=== PATIENT | male | born 1960 | race Caucasian/White ===

== ENCOUNTER 2020-06-23 11:27 | Outpatient (REF) | payer OTHER, SELFPAY ==
[2020-06-23 13:15] LABS: Alanine Aminotransferase 20 U/L (0-40); Albumin Level 4.1 g/dL (3.5-5.0); Alkaline Phosphatase 100 U/L (39-117); Anion Gap 14 (12-20); Aspartate Amino Transferase 16 U/L (5-37); Bilirubin Direct 0.6 mg/dL (0.0-0.5); Bilirubin Total 1.4 mg/dL (0.0-1.0); Blood Urea Nitrogen 7 mg/dL (9-16); Calcium 8.6 mg/dL (8.4-10.2); Carbon Dioxide 27 mmol/L (22-29); Chloride 104 mmol/L (96-108); Cholesterol 125 mg/dL; Estimated Glomerular Filt Rate > 60; Glucose Random 151 mg/dL (60-115); HDL Cholesterol 34 mg/dL; LDL Cholesterol Calculated 63 mg/dl; Potassium 4.3 mmol/L (3.3-5.1); Sodium 141 mmol/L (135-145); Total Protein 6.6 g/dL (6.5-8.0); Triglycerides 140 mg/dL
[2020-06-23 13:19] LABS: Mean Corpuscular HGB Conc 33.2 g/dl (31.0-36.0); Mean Corpuscular Hemoglobin 28.7 pg (27.0-33.0); Mean Corpuscular Volume 86.4 fL (80-98); Mean Platelet Volume 12.5 fL (9.4-12.4); Platelet Count 140 X10*3/uL (160-400); Red Blood Count 6.63 X10*6/uL (4.60-5.80); White Blood Count 6.8 X10*3/uL (4.8-10.8)
[2020-06-23 13:24] LABS: Estimated Average Glucose 237 mg/dL; Hematocrit 57.3 % (42-52); Hemoglobin A1c % 9.9 %
== END 2020-06-23 11:28 | disposition home or self-care (01) ==
LOC: HO.LAB 11:27
PROVIDERS: PCP Internal Medicine; Visit Provider Internal Medicine
DX: E11.9 Type 2 diabetes mellitus without complications (principal)
CPT/HCPCS: 36415; 80048; 80061; 80076; 83036; 85027

== ENCOUNTER 2021-01-28 10:29 | Outpatient (REF) | payer OTHER, SELFPAY ==
[2021-01-28 11:06] LABS: Hemoglobin 18.9 g/dl (14.0-18.0); Mean Corpuscular HGB Conc 33.2 g/dl (31.0-36.0); Mean Corpuscular Hemoglobin 28.1 pg (27.0-33.0); Mean Corpuscular Volume 84.7 fL (80.0-98.0); Platelet Count 153 X10*3/uL (160-400); Red Blood Count 6.73 X10*6/uL (4.60-5.80); Red Cell Distribution Width 15.1 % (11.0-16.0); White Blood Count 7.3 X10*3/uL (4.8-10.8)
[2021-01-28 11:30] LABS: Estimated Average Glucose 151 mg/dL; Hemoglobin A1c % 6.9 %
[2021-01-28 11:32] LABS: Alanine Aminotransferase 19 U/L (0-40); Albumin Level 4.2 g/dL (3.5-5.0); Alkaline Phosphatase 102 U/L (39-117); Anion Gap 12 (12-20); Aspartate Amino Transferase 18 U/L (5-37); Bilirubin Direct 0.5 mg/dL (0.0-0.5); Bilirubin Total 1.4 mg/dL (0.0-1.0); Blood Urea Nitrogen 11 mg/dL (9-16); Calcium 9.2 mg/dL (8.4-10.2); Carbon Dioxide 25 mmol/L (22-29); Chloride 106 mmol/L (96-108); Cholesterol 116 mg/dL; Estimated Glomerular Filt Rate > 60; Glucose Random 194 mg/dL (60-115); HDL Cholesterol 37 mg/dL; LDL Cholesterol Calculated 56 mg/dl; Potassium 4.3 mmol/L (3.3-5.1); Sodium 139 mmol/L (135-145); Total Protein 6.8 g/dL (6.5-8.0); Triglycerides 116 mg/dL
[2021-01-28 11:35] LABS: Creatinine Urine 149.26 mg/dL; Microalbum/Creatinine Ratio Ur 42.8 ug/mg cr
== END 2021-01-28 10:30 | disposition home or self-care (01) ==
LOC: HO.LAB 10:29
PROVIDERS: PCP Internal Medicine; Visit Provider Internal Medicine
DX: E11.9 Type 2 diabetes mellitus without complications (principal)
CPT/HCPCS: 36415; 80048; 80061; 80076; 82043; 83036; 84443; 85027

== ENCOUNTER 2021-03-30 13:29 | Outpatient (REF) | payer OTHER, SELFPAY ==
--- NOTE | ~2021-03-30 | XR_ITS ---
EXAMINATION: XR CHEST CLINICAL INFORMATION: Acute bronchitis, unspecified. COMPARISON: Chest done on 01/14/2016. TECHNIQUE: 2 views of the chest were obtained. FINDINGS: Interval development of subtle prominent bronchovascular markings are present bilaterally throughout the entire lung field, may represent viral pneumonia versus interstitial pneumonia versus reactive airway disease. No evidence of any superimposed dense airspace consolidation. The cardiac mediastinal silhouette is within normal limit. No evidence of any pleural effusion or pneumothorax. The visualized upper abdomen is unremarkable. Mild degenerative multilevel spondylosis. XR/XR chest 2V IMPRESSION: Interval development of diffuse bilateral subtle prominent bronchovascular markings are noted, may represent reactive airway disease versus viral pneumonia/interstitial pneumonia, new since 01/14/2016.
== END 2021-03-30 13:30 | disposition home or self-care (01) ==
LOC: HO.XRAY 13:29
PROVIDERS: PCP Internal Medicine; Visit Provider Internal Medicine
DX: J20.9 Acute bronchitis, unspecified (principal); I82.409 Acute embolism and thrombosis of unspecified deep veins of unspecified lower extremity; E11.9 Type 2 diabetes mellitus without complications
CPT/HCPCS: 71046

== ENCOUNTER 2021-08-03 13:42 | Outpatient (REF) | payer OTHER, SELFPAY ==
[2021-08-03 14:30] LABS: COVID-19 Test Positive (Negative); IDNOW Serial# 08D9AD1C
== END 2021-08-03 13:43 | disposition home or self-care (01) ==
LOC: HO.LAB 13:42
PROVIDERS: PCP Internal Medicine; Visit Provider Internal Medicine
DX: Z20.822 Contact with and (suspected) exposure to COVID-19 (principal)
CPT/HCPCS: 87635; C9803

== ENCOUNTER 2021-11-02 08:31 | Outpatient (REF) | payer OTHER, SELFPAY ==
[2021-11-02 11:19] LABS: MANUAL DIFF FLAG NO
[2021-11-02 11:29] LABS: Basophils Percent Auto 0.3 % (0-2); Eosinophils Absolute Auto 0.2 X10*3/uL (0.0-0.4); Eosinophils Percent Auto 2.2 % (0-4); Hemoglobin 18.6 g/dl (14.0-18.0); Imm Gran Abs Auto 0.04 X10*3/uL (0.00-0.03); Imm Gran Pct Auto 0.6 % (0.0-0.4); Lymphocytes Absolute Auto 1.7 X10*3/uL (1.2-4.9); Lymphocytes Percent Auto 24.9 % (20-40); Mean Corpuscular HGB Conc 32.7 g/dl (31.0-36.0); Mean Corpuscular Hemoglobin 28.1 pg (27.0-33.0); Mean Corpuscular Volume 85.9 fL (80.0-98.0); Mean Platelet Volume 12.8 fL (9.4-12.4); Monocytes Absolute Auto 0.6 X10*3/uL (0.1-1.2); Monocytes Percent Auto 9.1 % (2-11); Neutrophils Absolute Auto 4.3 x10*3/uL (2.0-8.3); Neutrophils Percent Auto 62.9 % (45-73); Platelet Count 138 X10*3/uL (160-400); Red Blood Count 6.61 X10*6/uL (4.60-5.80); Red Cell Distribution Width 15.5 % (11.0-16.0); White Blood Count 6.8 X10*3/uL (4.8-10.8)
[2021-11-02 11:31] LABS: Hematocrit 56.8 % (42.0-52.0)
[2021-11-02 11:43] LABS: Estimated Average Glucose 160 mg/dL; Hemoglobin A1c % 7.2 %
[2021-11-02 11:53] LABS: Alanine Aminotransferase 19 U/L (0-40); Albumin Level 4.1 g/dL (3.5-5.0); Alkaline Phosphatase 93 U/L (39-117); Anion Gap 13 (12-20); Aspartate Amino Transferase 16 U/L (5-37); Bilirubin Total 1.2 mg/dL (0.0-1.0); Blood Urea Nitrogen 11 mg/dL (9-16); Calcium 8.9 mg/dL (8.4-10.2); Carbon Dioxide 26 mmol/L (22-29); Chloride 106 mmol/L (96-108); Cholesterol 108 mg/dL; Estimated Glomerular Filt Rate > 60; Glucose Fasting 70 mg/dL (60-99); HDL Cholesterol 40 mg/dL; LDL Cholesterol Calculated 52 mg/dl; Sodium 141 mmol/L (135-145); Total Protein 6.7 g/dL (6.5-8.0); Triglycerides 81 mg/dL
[2021-11-02 12:01] LABS: TSH reflex Free T4 1.32 uIU/mL (0.32-4.0)
[2021-11-02 12:01] LABS: Appearance Urine CLEAR; Color Urine YELLOW; Glucose Urine UA NEG (NEG); Leukocyte Esterase Urine NEG (NEG); Nitrite Urine NEG (NEG); Specific Gravity - Urine >= 1.030 (1.005-1.025); Urine Blood NEG (NEG); Urine Ketones NEG (NEG); Urine Protein NEG (NEG-TRACE)
== END 2021-11-02 08:32 | disposition home or self-care (01) ==
LOC: HO.HMGCLDS 08:31
PROVIDERS: PCP Nurse Practitioner Family; Visit Provider Nurse Practitioner Family
DX: E11.9 Type 2 diabetes mellitus without complications (principal)
CPT/HCPCS: 36415; 80053; 80061; 81003; 83036; 84443; 85025; 87086

== ENCOUNTER 2023-01-31 12:45 | Outpatient (AMB) | payer OTHER, SELFPAY ==
--- NOTE | 2023-01-31 13:00 | A.OFFPC_ITS ---
Vital Signs 01/31/23 13:07 01/31/23 13:52 Weight 270 lb BP 150/80 H 138/70 Blood Pressure Location Rt brachial Rt brachial Position Sitting Sitting Pulse 72 Pulse Source Pulse Oximeter Pulse Oximetry (%) 97 Oxygen Delivery Method Room Air Intake Visit Reasons: Annual PE Intake Note: Needs new sugar supplies and machines. [facility]. Allergies metformin Allergy (Severe, Verified 01/31/23 13:26) Itching Medication List - Last Reconciled 01/31/23 by Martin Adams, [facility]- albuterol sulfate 1.25 mg (1.5 mL) inhalation Q6H 90 days albuterol sulfate 90 mcg/actuation 1 inh inhalation QID PRN 90 days apixaban (Eliquis) 5 mg PO BID 90 days blood sugar diagnostic test blood sugar three times a day blood sugar diagnostic (FreeStyle Lite Strips) bid gabapentin 800 mg PO Q8H 90 days insulin glargine (Lantus Solostar U-100 Insulin) 75 units (0.75 mL) subcut DAILY 90 days lisinopril 20 mg PO DAILY 3 months pen needle, diabetic (BD Ultra-Fine Lesli Pen Needle) As directed pioglitazone 15 mg PO DAILY simvastatin 20 mg PO BEDTIME 3 months triamcinolone acetonide 0.1% 1 appl topical BID Tobacco use date assessed: 01/31/23 HPI Annual PE HPI Details Pt is here for a PE. Will order labs. Refuses any type of colon screen. Due for PSA, will order. Denies dribbling with urination, weak stream, and frequent nocturia. Pt is a diabetic, on an GREGORY and a statin. A1C in office today is 6.6. Due for microalbumin, will order. Denies polyuria, polydipsia, does report neuropathy. Pt denies any signs and symptoms of hypoglycemia and does know how to correct it. Pt has been a PPD smoker since age 17. Will refer to thoracic for low-dose CT. Pt has been in [place] for the last year and has not seen anyone for diabetes in over a year. Pt has induration and scattered bulging throughout his entire abdomen. He reports this is from poor weight-lifting in the past. Pt has had this checked out in the past and nothing was found. [facility] Medical History (Updated 11/08/23 @ 13:36 by ROMAN Salamanca) HTN (hypertension) Cataract Lumbar spondylitis Smoker COPD (chronic obstructive pulmonary disease) Erythrocytosis Deep vein thrombosis Blood clotting disorder Diabetes Surgical History History of surgery on arm Family History Mother No problems noted. Father No problems noted. Social History Housing: Apartment Alcohol intake: former Patient Tobacco Use Status: Current everyday Tobacco user Tobacco use type: Cigarette Cigarette Packs Per Day: 1.5 e-Cigarette/Vaping Use: Never Used Second Hand Smoke Exposure: No service: No Current occupational status: retired Cognitive needs: Yes (cane) Hearing needs: No Vision needs: No Questionnaire PHQ-9 Over the last 2 weeks, how often have you been bothered by any of the following problems? 1. Little interest or pleasure in doing things: several days 2. Feeling down, depressed, or hopeless: not at all 3. Trouble falling or staying asleep, or sleeping too much: more than half the days 4. Feeling tired or having little energy: several days 5. Poor appetite or overeating: several days 6. Feeling bad about yourself - or that you are a failure or have let yourself or your family down: not at all 7. Trouble concentrating on things, such as reading the newspaper or watching television: not at all 8. Moving or speaking so slowly that other people could have noticed. Or the opposite - being so fidgety or restless that you have been moving around a lot more than usual: not at all 9. Thoughts that you would be better off or of hurting yourself in some way: not at all Total score: 5 Depression Screening Interpretation: Negative Depression Screening Done: Yes 78252 - PHQ-9 Billing: Yes Source: Developed by Drs. Jorge Roper, Ct Hopkins, Jeremy Velasquez and colleagues, with an educational magui from [employer]. Thrive Questionnaire Date Thrive assessed: 01/31/23 I am a: Patient What is your living situation today?: I have a steady place to live Within the past 12 months, did the food you bought not last and you didn't have the money to get more?: Never true Within the past 12 months, did you worry whether your food would run out before you got money to buy more?: Never true Do you have trouble paying for medicines?: Yes Do you have trouble getting transportation to medical appointments?: No Do you have trouble paying your heating and electricity bill?: Yes Do you have trouble taking care of your child, family member or friend?: No Do you have trouble with day-to-day activities such as bathing, preparing meals, shopping, managing finances, etc.?: No Are you currently unemployed and looking for a job?: No Are you interested in more education?: No AUDIT C Alcohol Use Questionnaire (AUDIT-C) 1. How often do you have a drink containing alcohol?: Never 3. How often do you have six or more drinks on one occasion?: Never Total Score: 0 Score Reviewed/Action Taken: No MATTEO-7 AMB Questionnaire MATTEO-7 Date MATTEO - 7 assessed: 01/31/23 Feeling nervous, anxious, or on edge: 1 = Several days Not being able to stop or control worryin = Not at all Worrying too much about different things: 0 = Not at all Trouble relaxin = Several days Being so restless that it is hard to sit still: 1 = Several days Becoming easily annoyed or irritable: 2 = More than half the days Feeling afraid as if something awful might happen: 0 = Not at all Total MATTEO-7 score (0-4 normal; 5-9 mild; 10-14 moderate; 15-21 severe): 5 Source: Developed by Drs. Jorge Roper, Ct Hopkins, Jeremy Velasquez and colleagues, with an educational magui from [employer]. MATTEO-7 Assessment Billing MATTEO-7 Assessment Tool: MATTEO-7 Assessment 19601 Review of Systems Const Denies chills and Denies fever(s) Eyes Denies blurry vision ENT Denies vertigo, Denies dizziness and Denies sore throat Card Denies chest pain at rest, Denies chest pain with activity, Denies diaphoresis, Denies dyspnea and Denies dyspnea on exertion Resp Denies cough, Denies dyspnea, Denies dyspnea on exertion and Denies wheezing GI Denies abdominal pain, Denies melena, Denies hematochezia, Denies constipation, Denies diarrhea and Denies loose stools Denies hematuria Musc Denies numbness and Denies tingling Skin/Breast Denies lesions Neuro Denies vertigo, Denies dizziness, Denies numbness and Denies tingling Psych Denies anxiety, Denies depression, Denies homicidal ideation, Denies suicidal ideation and Denies other (substance abuse) Aller/Immun Denies wheezing Physical exam (Primary Care) Vital Signs: Last Vital Signs Pulse 72 01/31/23 13:07 BP 138/70 01/31/23 13:52 Pulse Ox 97 01/31/23 13:07 Oxygen Delivery Method Room Air 01/31/23 13:07 Tobacco/Smoking Status: Tobacco use Status Tobacco use date assessed 01/31/23 01/31/23 13:15 Patient Tobacco Use Status Current everyday Tobacco 01/31/23 13:01 Tobacco use type Cigarette 01/31/23 13:01 e-Cigarette/Vaping Use Never Used 01/31/23 13:01 PHQ-9: PHQ-9 Score PHQ-9: Total score 5 01/31/23 13:59 Depression Screening Interpretation: Negative Thrive Assessment: Date of Thrive Assessment Date Thrive assessed 01/31/23 01/31/23 13:59 Const Other: using cane General: cooperative Nutritional Appearance: obese morbidly obese Orientation/consciousness: patient oriented x3 HENMT Head: Yes normal to inspection, Yes normocephalic and Yes atraumatic Ears: TM's normal bilaterally Eyes General: appearance normal, both eyes and all related structures Alignment and Position: alignment normal and position normal Neck Neck: Yes normal visual inspection and Yes no lymphadenopathy Thyroid: Thyroid normal Resp Effort & Inspection: normal respiratory effort Auscultation: clear to auscultation bilaterally Cardio Rate: regular rate Rhythm: regular rhythm Heart sounds: S1 normal heart sound present, S2 normal heart sound present and no murmurs GI Other: indurated abdomen with scattered bulging Palpation (GI): nontender Auscultation: normal bowel sounds Male General Exam: Yes normal external exam Penis: normal penis Scrotum: scrotum normal, testes descended bilaterally and no inguinal hernias Testes: no testicular mass Skin Rashes: no rashes Neuro General: patient oriented x3, moves all extremities, no focal motor deficits and deep tendon reflexes 2+ bilaterally Romberg Test: Negative Extrem Other: bilat feet: + sensation with use of monofilament, elongated toenails bilat, significant callous formation to heel of left foot Psych Appearance: grossly normal Mental Status: mental status grossly normal Speech and movement: Normal speech and movement present Affect: normal affect Attitude: cooperative Thought process: Normal thought process present Thought content: Normal thought content present Insight: Good insight present (Psych) Judgement: Good judgement present (Psych) Results AMB Hemoglobin A1c AMB Hemoglobin A1c 6.6 % Last Edit by VICTOR HUGO Becker on 01/31/23 13 :41 Results Reviewed Results Reviewed: Laboratory Last Values Hgb A1c (Clinic) 6.6 % (4.0-6.0) H 01/31/23 13:40 Assessment and Plan Assessment & Plan (1) Diabetes: Code(s): E11.9 - Type 2 diabetes mellitus without complications Qualifiers: Diabetes mellitus complication status: without complication Diabetes mellitus intermediate insulin use: without intermediate use Diabetes mellitus type: type 2 Qualified Code(s): E11.9 - Type 2 diabetes mellitus without complications Plan: Labs ordered (2) Screening PSA (prostate specific antigen): Code(s): Z12.5 - Encounter for screening for malignant neoplasm of prostate Plan: PSA ordered (3) Smoker: Code(s): F17.200 - Nicotine dependence, unspecified, uncomplicated Plan: Referred to thoracic Plan The patient agreed to the use of a front office medical assistant for this encounter. Scribed for ROMAN Ramos by eleno Castañeda scribe, on 01/31/2023 at 13:25 EST. Orders: Orders Microalbumin, Random (w Creat) Today E11.9 - Type 2 diabetes mellitus without complications, Z00.00 - Encounter for general adult medical examination without abnormal findings Complete Blood Count Auto Diff Today E11.9 - Type 2 diabetes mellitus without complications, Z00.00 - Encounter for general adult medical examination without abnormal findings Comprehensive [place]. Panel Fast Today E11.9 - Type 2 diabetes mellitus without complications, Z00.00 - Encounter for general adult medical examination without abnormal findings TSH reflex Free T4 Today E11.9 - Type 2 diabetes mellitus without complications, Z00.00 - Encounter for general adult medical examination without abnormal findings UA CC w/rflx Micro + Cult Today E11.9 - Type 2 diabetes mellitus without complications, Z00.00 - Encounter for general adult medical examination without abnormal findings Lipid Panel Today E11.9 - Type 2 diabetes mellitus without complications, Z00.00 - Encounter for general adult medical examination without abnormal findings Prostate Specific Antigen Scr Today Z12.5 - Encounter for screening for malignant neoplasm of prostate AMB Hemoglobin A1c Today Z13.9 - Encounter for screening, unspecified Referrals Thoracic Surgery Referral F17.200 - Nicotine dependence, unspecified, uncomplicated Podiatry Referral E11.9 - Type 2 diabetes mellitus without complications Medications: Changed From blood sugar diagnostic (FreeStyle Lite Strips) bid 100 ea 4RF E11.9 - Type 2 diabetes mellitus without complications To blood sugar diagnostic (FreeStyle Lite Strips) tid 100 ea 4RF E11.9 - Type 2 diabetes mellitus without complications From insulin glargine (Lantus Solostar U-100 Insulin) 75 units (0.75 mL) subcut DAILY 90 days 67.5 mL 4RF E11.9 - Type 2 diabetes mellitus without complications To insulin glargine (Lantus Solostar U-100 Insulin) 65 units (0.65 mL) subcut DAILY 90 days 58.5 mL 4RF E11.9 - Type 2 diabetes mellitus without complications Refilled insulin glargine (Lantus Solostar U-100 Insulin) 65 units (0.65 mL) subcut DAILY 90 days 58.5 mL 4RF E11.9 - Type 2 diabetes mellitus without complications blood sugar diagnostic test blood sugar three times a day 100 ea 1RF insulin glargine (Lantus Solostar U-100 Insulin) 65 units (0.65 mL) subcut DAILY 90 days 58.5 mL 4RF E11.9 - Type 2 diabetes mellitus without complications Coding Level of Care Code Est Pt Prev Care 40-64y(76449) Diagnoses Type 2 diabetes mellitus without complication, without long-term current use of insulin E11.9 Diabetes mellitus complication status: without complication Diabetes mellitus intermediate insulin use: without intermediate use Diabetes mellitus type: type 2 Screening PSA (prostate specific antigen) Z12.5 Smoker F17.200 Additional Codes MATTEO-7 Assessment Billing - MATTEO-7 Assessment Tool: MATTEO-7 Assessment [id number] ([id number])
[2023-01-31 13:07] VITALS: BP 150/80; PULSE 72; O2SAT 97
[2023-01-31 13:52] VITALS: BP 138/70
== END 2023-01-31 14:21 | disposition home or self-care (01) ==
PROVIDERS: PCP Nurse Practitioner Family; Visit Provider Nurse Practitioner Family
DX: Z00.00 Encounter for general adult medical examination without abnormal findings (principal); E11.9 Type 2 diabetes mellitus without complications; Z12.5 Encounter for screening for malignant neoplasm of prostate; F17.210 Nicotine dependence, cigarettes, uncomplicated
CPT/HCPCS: 83036; 99396

== ENCOUNTER 2023-04-19 09:36 | Outpatient (REF) | payer OTHER, SELFPAY ==
[2023-04-19 11:38] LABS: MANUAL DIFF FLAG NO
[2023-04-19 11:56] LABS: Appearance Urine Clear; Color Urine Yellow; Glucose Urine UA Negative (Negative); Leukocyte Esterase Urine Negative (Negative); Nitrite Urine Negative (Negative); PH 5.5 (5.0-9.0); Specific Gravity - Urine >= 1.030 (1.005-1.025); Urine Blood Negative (Negative); Urine Ketones Negative (Negative); Urine Protein Negative (Neg-Trace)
[2023-04-19 12:09] LABS: Basophils Percent Auto 0.3 % (0-2); Eosinophils Absolute Auto 0.2 X10*3/uL (0.0-0.4); Eosinophils Percent Auto 2.6 % (0-4); Hemoglobin 18.9 g/dl (14.0-18.0); Imm Gran Abs Auto 0.03 X10*3/uL (0.00-0.03); Imm Gran Pct Auto 0.5 % (0.0-0.4); Lymphocytes Absolute Auto 1.4 X10*3/uL (1.2-4.9); Lymphocytes Percent Auto 24.7 % (20-40); Mean Corpuscular HGB Conc 32.9 g/dl (31.0-36.0); Mean Corpuscular Hemoglobin 29.1 pg (27.0-33.0); Mean Corpuscular Volume 88.3 fL (80.0-98.0); Mean Platelet Volume 12.7 fL (9.4-12.4); Monocytes Absolute Auto 0.6 X10*3/uL (0.1-1.2); Monocytes Percent Auto 10.6 % (2-11); Neutrophils Absolute Auto 3.5 x10*3/uL (2.0-8.3); Neutrophils Percent Auto 61.3 % (45-73); Platelet Count 131 X10*3/uL (160-400); White Blood Count 5.8 X10*3/uL (4.8-10.8)
[2023-04-19 12:18] LABS: Creatinine Urine 150.46 mg/dL; Microalbum/Creatinine Ratio Ur 11.9 ug/mg cr (<30)
[2023-04-19 12:20] LABS: Hematocrit 57.4 % (42.0-52.0)
[2023-04-19 12:35] LABS: Alanine Aminotransferase 18 U/L (0-40); Albumin Level 4.1 g/dL (3.5-5.0); Alkaline Phosphatase 92 U/L (39-117); Anion Gap 13 (12-20); Aspartate Amino Transferase 21 U/L (5-37); Blood Urea Nitrogen 10 mg/dL (9-16); Calcium 9.2 mg/dL (8.4-10.2); Carbon Dioxide 26 mmol/L (22-29); Chloride 107 mmol/L (96-108); Cholesterol 96 mg/dL (<200); Estimated Glomerular Filt Rate > 60; Glucose Fasting 92 mg/dL (60-99); HDL Cholesterol 32 mg/dL (>40); LDL Cholesterol Calculated 35 mg/dL (<100); Potassium 4.1 mmol/L (3.3-5.1); Sodium 142 mmol/L (135-145); Triglycerides 147 mg/dL (<150)
[2023-04-19 12:40] LABS: TSH reflex Free T4 1.21 uIU/mL (0.32-4.0)
[2023-04-19 12:44] LABS: Prostate Specific Antigen Scr 0.69 ng/mL (<0.05-4.0)
== END 2023-04-19 09:37 | disposition home or self-care (01) ==
LOC: HO.HMGCLDS 09:36
PROVIDERS: PCP Nurse Practitioner Family; Visit Provider Nurse Practitioner Family
DX: Z00.00 Encounter for general adult medical examination without abnormal findings (principal); Z12.5 Encounter for screening for malignant neoplasm of prostate; E11.9 Type 2 diabetes mellitus without complications
CPT/HCPCS: 36415; 80053; 80061; 81003; 82043; 82570; 84153; 84443; 85025

== ENCOUNTER → 2023-05-10 11:20 | Outpatient (BNV) | payer OTHER, SELFPAY | PROVIDERS: PCP Nurse Practitioner Family; Visit Provider Internal Medicine | DX: D69.6 Thrombocytopenia, unspecified (principal) | CPT/HCPCS: 99203 ==

== ENCOUNTER 2023-05-16 12:51 | Outpatient (AMB) | payer OTHER, SELFPAY ==
--- NOTE | 2023-05-16 12:52 | MHC.PC.OV ---
Vital Signs 05/16/23 12:53 Height 5 ft 10 in Weight 270 lb BMI 38.7 BP 160/82 H Blood Pressure Location Lt brachial Position Sitting Pulse 76 Pulse Source Pulse Oximeter Pulse Oximetry (%) 97 Oxygen Delivery Method Room Air Intake Visit Reasons: 3 month fu Intake Note: pt is here for 3 month follow up Plywood Patcher Required: No Allergies metformin Allergy (Severe, Verified 05/16/23 17:57) Itching Medication List - Last Reconciled 05/16/23 by ROMAN Salamanca albuterol sulfate 1.25 mg (1.5 mL) inhalation Q6H 90 days albuterol sulfate 90 mcg/actuation 1 inh inhalation QID PRN 90 days apixaban (Eliquis) 5 mg PO BID 90 days blood sugar diagnostic (FreeStyle Lite Strips) tid blood sugar diagnostic test blood sugar three times a day flash glucose scanning reader (FreeStyle Maria Del Rosario 2 [place]) As directed flash glucose sensor (FreeStyle Maria Del Rosario 2 Sensor kit) Test blood sugar 4 times per day gabapentin 800 mg PO Q8H 90 days insulin glargine (Lantus Solostar U-100 Insulin) 75 units subcut DAILY lancets (FreeStyle Lancets) As directed lisinopril 20 mg PO DAILY 3 months pen needle, diabetic (BD Ultra-Fine Lesli Pen Needle) As directed pioglitazone 15 mg PO DAILY simvastatin 20 mg PO BEDTIME 3 months Tobacco use date assessed: 05/16/23 Dental Screening Dental Screen Date: 05/16/23 Did you have a dental visit in the last 12 months?: No Did you have a dental problem in the last 6 months where you did not have access to dental care?: No Was dental information given to patient?: Patient declined HPI 3 month fu HPI Details Pt is a diabetic, on an GREGORY and a statin. A1C in office today is . Microalbumin is up to date. Denies polyuria, polydipsia, does report neuropathy. Pt denies any signs and symptoms of hypoglycemia and does know how to correct it. Eye exam is up to date. Pt was referred to podiatry but has not received a call back about an appointment. Pt will call them again to schedule this. [facility] Medical History (Updated 05/16/23 @ 18:04 by ROMAN Salamanca) HTN (hypertension) Cataract Lumbar spondylitis Smoker COPD (chronic obstructive pulmonary disease) Erythrocytosis Deep vein thrombosis Blood clotting disorder Diabetes Surgical History History of surgery on arm Family History Mother No problems noted. Father No problems noted. Social History Housing: Apartment Alcohol intake: former Patient Tobacco Use Status: Current everyday Tobacco user Tobacco use type: Cigarette Cigarette Packs Per Day: 1.5 e-Cigarette/Vaping Use: Never Used Second Hand Smoke Exposure: No service: No Current occupational status: retired Cognitive needs: Yes (cane) Hearing needs: No Vision needs: No Questionnaire PHQ-9 Over the last 2 weeks, how often have you been bothered by any of the following problems? 1. Little interest or pleasure in doing things: not at all 2. Feeling down, depressed, or hopeless: not at all 3. Trouble falling or staying asleep, or sleeping too much: not at all 4. Feeling tired or having little energy: not at all 5. Poor appetite or overeating: not at all 6. Feeling bad about yourself - or that you are a failure or have let yourself or your family down: not at all 7. Trouble concentrating on things, such as reading the newspaper or watching television: not at all 8. Moving or speaking so slowly that other people could have noticed. Or the opposite - being so fidgety or restless that you have been moving around a lot more than usual: not at all 9. Thoughts that you would be better off or of hurting yourself in some way: not at all Total score: 0 Depression Screening Interpretation: Negative Depression Screening Done: Yes 49142 - PHQ-9 Billing: Yes Source: Developed by Drs. Jorge Roper, Ct Hopkins, Jeremy Velasquez and colleagues, with an educational magui from [employer]. Thrive Questionnaire Date Thrive assessed: 05/16/23 I am a: Patient What is your living situation today?: I have a steady place to live Within the past 12 months, did the food you bought not last and you didn't have the money to get more?: Never true Within the past 12 months, did you worry whether your food would run out before you got money to buy more?: Never true Do you have trouble paying for medicines?: No Do you have trouble getting transportation to medical appointments?: No Do you have trouble paying your heating and electricity bill?: No Do you have trouble taking care of your child, family member or friend?: No Do you have trouble with day-to-day activities such as bathing, preparing meals, shopping, managing finances, etc.?: No Are you currently unemployed and looking for a job?: No Are you interested in more education?: No Please select the resources that you would like help with: None Currently or been in a relationship where the following occur: no concerns reported THRIVE Score: 0 AUDIT C Alcohol Use Questionnaire (AUDIT-C) 1. How often do you have a drink containing alcohol?: Never 3. How often do you have six or more drinks on one occasion?: Never Total Score: 0 Score Reviewed/Action Taken: No MATTEO-7 AMB Questionnaire MATTEO-7 Date MATTEO - 7 assessed: 05/16/23 Feeling nervous, anxious, or on edge: 0 = Not at all Not being able to stop or control worryin = Not at all Worrying too much about different things: 0 = Not at all Trouble relaxin = Not at all Being so restless that it is hard to sit still: 0 = Not at all Becoming easily annoyed or irritable: 0 = Not at all Feeling afraid as if something awful might happen: 0 = Not at all Total MATTEO-7 score (0-4 normal; 5-9 mild; 10-14 moderate; 15-21 severe): 0 Source: Developed by Drs. Jorge Roper, Ct Hopkins, Jeremy Velasquez and colleagues, with an educational magui from [employer]. MATTEO-7 Assessment Billing MATTEO-7 Assessment Tool: MATTEO-7 Assessment 33034 Review of Systems Const Reports as per HPI Physical exam (Primary Care) Vital Signs: Last Vital Signs Pulse 76 05/16/23 12:53 BP 160/82 H 05/16/23 12:53 Pulse Ox 97 05/16/23 12:53 Oxygen Delivery Method Room Air 05/16/23 12:53 BMI result Body Mass Index 38.7 Tobacco/Smoking Status: Tobacco use Status Tobacco use date assessed 05/16/23 05/16/23 12:59 Patient Tobacco Use Status Current everyday Tobacco 05/16/23 12:53 Tobacco use type Cigarette 05/16/23 12:53 e-Cigarette/Vaping Use Never Used 05/16/23 12:53 PHQ-9: PHQ-9 Score PHQ-9: Total score 0 05/16/23 18:00 Depression Screening Interpretation: Negative Thrive Assessment: Date of Thrive Assessment Date Thrive assessed 05/16/23 05/16/23 13:01 Currently or been in a relationship where the following occur: no concerns reported Const General: cooperative Nutritional Appearance: obese Orientation/consciousness: patient oriented x3 Resp Effort & Inspection: normal respiratory effort Auscultation: clear to auscultation bilaterally Cardio Rate: regular rate Rhythm: regular rhythm Heart sounds: S1 normal heart sound present and S2 normal heart sound present Neuro General: patient oriented x3 Extrem Other: bilat feet: + sensation with use of monofilament, feet intact, elongated toenails Psych Appearance: grossly normal Mental Status: mental status grossly normal Speech and movement: Normal speech and movement present Affect: normal affect Attitude: cooperative Thought process: Normal thought process present Thought content: Normal thought content present Insight: Good insight present (Psych) Judgement: Good judgement present (Psych) Results AMB Hemoglobin A1c AMB Hemoglobin A1c 6.6 % Last Edit by Mich Salazar CMA on 05/16/23 13:18 Results Reviewed Results Reviewed: Laboratory Last Values Hgb A1c (Clinic) 6.6 % (4.0-6.0) H 05/16/23 13:08 Assessment and Plan Assessment & Plan (1) Diabetes: Code(s): E11.9 - Type 2 diabetes mellitus without complications Qualifiers: Diabetes mellitus complication status: without complication Diabetes mellitus watermelon inspector insulin use: without watermelon inspector use Diabetes mellitus type: type 2 Qualified Code(s): E11.9 - Type 2 diabetes mellitus without complications (2) HTN (hypertension): Code(s): I10 - Essential (primary) hypertension Plan: adding amlodipine, will have pt track his BP at home Plan The patient agreed to the use of a medical assisting instructor for this encounter. Scribed for JAGDEEP Ramos-BC by Genevieve Morel medical assisting instructor, on 05/16/2023 at 13:10 EST. Orders: Orders TSH reflex Free T4 Today E11.9 - Type 2 diabetes mellitus without complications Lipid Panel Today E11.9 - Type 2 diabetes mellitus without complications AMB Hemoglobin A1c Today Z13.9 - Encounter for screening, unspecified Complete Blood Count Auto Diff Today E11.9 - Type 2 diabetes mellitus without complications Comprehensive [place]. Panel Fast Today E11.9 - Type 2 diabetes mellitus without complications UA CC w/rflx Micro + Cult Today E11.9 - Type 2 diabetes mellitus without complications Medications: New lancets (FreeStyle Lancets) As directed 100 ea 0RF amlodipine 2.5 mg PO DAILY 90 tabs 0RF Refilled blood sugar diagnostic (FreeStyle Lite Strips) tid 100 ea 4RF E11.9 - Type 2 diabetes mellitus without complications blood sugar diagnostic test blood sugar three times a day 100 ea 1RF Coding Level of Care Code Est Pt Level 3 (25821) Diagnoses Type 2 diabetes mellitus without complication, without long-term current use of insulin E11.9 Diabetes mellitus complication status: without complication Diabetes mellitus senior living insulin use: without senior living use Diabetes mellitus type: type 2 HTN (hypertension) I10 Additional Codes MATTEO-7 Assessment Billing - MATTEO-7 Assessment Tool: MATTEO-7 Assessment [id number] ([id number])
[2023-05-16 12:53] VITALS: BP 160/82; PULSE 76; O2SAT 97; BMI 38.7
== END 2023-05-16 15:47 | disposition home or self-care (01) ==
PROVIDERS: PCP Nurse Practitioner Family; Visit Provider Nurse Practitioner Family
DX: E11.9 Type 2 diabetes mellitus without complications (principal); I10 Essential (primary) hypertension
CPT/HCPCS: 83036; 99213

== ENCOUNTER 2023-08-14 09:57 | Outpatient (REF) | payer OTHER, SELFPAY ==
[2023-08-14 13:07] LABS: MANUAL DIFF FLAG NO
[2023-08-14 13:25] LABS: Appearance Urine Clear; Color Urine Yellow; Glucose Urine UA Negative (Negative); Leukocyte Esterase Urine Negative (Negative); Nitrite Urine Negative (Negative); PH 6.5 (5.0-9.0); Urine Blood Negative (Negative); Urine Ketones Negative (Negative); Urine Protein Negative (Neg-Trace)
[2023-08-14 13:30] LABS: Basophils Percent Auto 0.6 % (0-2); Eosinophils Absolute Auto 0.2 X10*3/uL (0.0-0.4); Eosinophils Percent Auto 2.7 % (0-4); Hemoglobin 19.2 g/dl (14.0-18.0); Imm Gran Abs Auto 0.04 X10*3/uL (0.00-0.03); Imm Gran Pct Auto 0.6 % (0.0-0.4); Lymphocytes Absolute Auto 1.7 X10*3/uL (1.2-4.9); Lymphocytes Percent Auto 23.9 % (20-40); Mean Corpuscular HGB Conc 32.6 g/dl (31.0-36.0); Mean Corpuscular Hemoglobin 29.1 pg (27.0-33.0); Mean Corpuscular Volume 89.4 fL (80.0-98.0); Mean Platelet Volume 12.8 fL (9.4-12.4); Monocytes Absolute Auto 0.7 X10*3/uL (0.1-1.2); Monocytes Percent Auto 10.1 % (2-11); Neutrophils Absolute Auto 4.4 x10*3/uL (2.0-8.3); Neutrophils Percent Auto 62.1 % (45-73); Platelet Count 143 X10*3/uL (160-400); Red Blood Count 6.59 X10*6/uL (4.60-5.80); Red Cell Distribution Width 16.2 % (11.0-16.0); White Blood Count 7.1 X10*3/uL (4.8-10.8)
[2023-08-14 13:32] LABS: Hematocrit 58.9 % (42.0-52.0)
[2023-08-14 14:05] LABS: Alanine Aminotransferase 23 U/L (0-40); Albumin Level 4.1 g/dL (3.5-5.0); Alkaline Phosphatase 94 U/L (39-117); Anion Gap 15 (12-20); Aspartate Amino Transferase 21 U/L (5-37); Bilirubin Total 1.3 mg/dL (0.0-1.0); Blood Urea Nitrogen 11 mg/dL (9-16); Calcium 9.3 mg/dL (8.4-10.2); Carbon Dioxide 26 mmol/L (22-29); Chloride 106 mmol/L (96-108); Cholesterol 112 mg/dL (<200); Estimated Glomerular Filt Rate > 60; Glucose Fasting 64 mg/dL (60-99); HDL Cholesterol 45 mg/dL (>40); LDL Cholesterol Calculated 52 mg/dL (<100); Potassium 4.2 mmol/L (3.3-5.1); Sodium 143 mmol/L (135-145); Total Protein 7.2 g/dL (6.5-8.0); Triglycerides 79 mg/dL (<150)
[2023-08-14 14:07] LABS: TSH reflex Free T4 1.13 uIU/mL (0.32-4.0)
== END 2023-08-14 09:58 | disposition home or self-care (01) ==
LOC: HO.HMGCLDS 09:57
PROVIDERS: PCP Nurse Practitioner Family; Visit Provider Nurse Practitioner Family
DX: E11.9 Type 2 diabetes mellitus without complications (principal)
CPT/HCPCS: 36415; 80053; 80061; 81003; 84443; 85025

== ENCOUNTER 2023-08-22 13:59 | Outpatient (AMB) | payer OTHER, SELFPAY ==
[2023-08-22 14:04] VITALS: BP 150/78; PULSE 80; O2SAT 98; BMI 39.7
--- NOTE | 2023-08-22 14:04 | MHC.PC.OV ---
Vital Signs 08/22/23 14:04 Height 5 ft 10 in Weight 276 lb 8 oz BMI 39.7 BP 150/78 H Blood Pressure Location Rt brachial Position Sitting Pulse 80 Pulse Source Pulse Oximeter Pulse Oximetry (%) 98 Oxygen Delivery Method Room Air Intake Visit Reasons: 3 month follow up Commissioner Of Internal Revenue: Not Required per policy Accompanied by: Self / Same As Patient Allergies metformin Allergy (Severe, Verified 08/22/23 14:05) Itching Medication List - Last Reconciled 08/22/23 by ROMAN Salamanca albuterol sulfate 1.25 mg (1.5 mL) inhalation Q6H 90 days albuterol sulfate 90 mcg/actuation 1 inh inhalation QID PRN 90 days amlodipine 2.5 mg PO DAILY apixaban (Eliquis) 5 mg PO BID 90 days blood sugar diagnostic (FreeStyle Lite Strips) tid blood sugar diagnostic test blood sugar three times a day flash glucose scanning reader (FreeStyle Maria Del Rosario 2 [place]) As directed flash glucose sensor (FreeStyle Maria Del Rosario 2 Sensor kit) Test blood sugar 4 times per day gabapentin 800 mg PO Q8H 90 days insulin glargine (Lantus Solostar U-100 Insulin) 75 units subcut DAILY lancets (FreeStyle Lancets) As directed lisinopril 20 mg PO DAILY pen needle, diabetic (BD Ultra-Fine Lesli Pen Needle) daily use pioglitazone 15 mg PO DAILY simvastatin 20 mg PO BEDTIME Tobacco use date assessed: 05/16/23 Dental Screening Dental Screen Date: 05/16/23 HPI 3 month follow up HPI Details Pt is a diabetic, on an GREGORY and a statin. A1C in office today is 6.7. Microalbumin is up to date. Denies polyuria, polydipsia, does report neuropathy. Pt denies any signs and symptoms of hypoglycemia and does know how to correct it. Eye exam is up to date according to pt. Pt is following up with hematology and podiatry. Refuses pneumonia vaccine. Refuses any type of colon screen. HTN: Blood pressure is elevated today. Will increase lisinopril from 20mg to 30mg. Denies chest pain, shortness of breath, headache, dizziness, and blurred vision. [facility] Medical History HTN (hypertension) Cataract Lumbar spondylitis Smoker COPD (chronic obstructive pulmonary disease) Erythrocytosis Deep vein thrombosis Blood clotting disorder Diabetes Surgical History History of surgery on arm Family History Mother No problems noted. Father No problems noted. Social History Housing: Apartment Alcohol intake: former Patient Tobacco Use Status: Current everyday Tobacco user Tobacco use type: Cigarette Cigarette Packs Per Day: 1.5 e-Cigarette/Vaping Use: Never Used Second Hand Smoke Exposure: No service: No Current occupational status: retired Cognitive needs: Yes (cane) Hearing needs: No Vision needs: No Questionnaire Thrive Questionnaire Date Thrive assessed: 05/16/23 MATTEO-7 AMB Questionnaire MATTEO-7 Date MATTEO - 7 assessed: 05/16/23 Source: Developed by Drs. Jorge Roper, Ct Hopkins, Jeremy Velasquez and colleagues, with an educational magui from [employer]. Review of Systems Const Reports as per HPI Physical exam (Primary Care) Vital Signs: Last Vital Signs Pulse 80 08/22/23 14:04 BP 150/78 H 08/22/23 14:04 Pulse Ox 98 08/22/23 14:04 Oxygen Delivery Method Room Air 08/22/23 14:04 BMI result Body Mass Index 39.7 Tobacco/Smoking Status: Tobacco use Status Tobacco use date assessed 05/16/23 08/22/23 14:06 Patient Tobacco Use Status Current everyday Tobacco 08/22/23 14:06 Tobacco use type Cigarette 08/22/23 14:06 e-Cigarette/Vaping Use Never Used 08/22/23 14:06 Thrive Assessment: Date of Thrive Assessment Date Thrive assessed 05/16/23 08/22/23 14:06 Const General: cooperative Nutritional Appearance: obese Orientation/consciousness: patient oriented x3 Resp Effort & Inspection: normal respiratory effort Auscultation: diminished lung sounds (though moving air) Cardio Rate: regular rate Rhythm: regular rhythm Heart sounds: S1 normal heart sound present and S2 normal heart sound present Neuro General: patient oriented x3 Extrem Other: bilat feet: + sensation with use of monofilament, feet intact, no right calf tenderness or warmth Right lower extremity: edema Details: pitting and 1+ Left lower extremity: edema (trace) Psych Appearance: grossly normal Mental Status: mental status grossly normal Speech and movement: Normal speech and movement present Affect: normal affect Attitude: cooperative Thought process: Normal thought process present Thought content: Normal thought content present Insight: Good insight present (Psych) Judgement: Good judgement present (Psych) Results AMB Hemoglobin A1c AMB Hemoglobin A1c 6.7 % Last Edit by FEDERICO Alexander on 08/22/23 14:21 Results Reviewed Results Reviewed: Laboratory Last Values Hgb A1c (Clinic) 6.7 % (4.0-6.0) H 08/22/23 14:21 Assessment and Plan Assessment & Plan (1) Diabetes: Code(s): E11.9 - Type 2 diabetes mellitus without complications Qualifiers: Diabetes mellitus complication status: without complication Diabetes mellitus marine oil terminal superintendent insulin use: without marine oil terminal superintendent use Diabetes mellitus type: type 2 Qualified Code(s): E11.9 - Type 2 diabetes mellitus without complications Plan: A1C done in office, cont same regime Plan The patient agreed to the use of a associate medical director for this encounter. Scribed for ROMAN Ramos by Genevieve Morel associate medical director, on 08/22/2023 at 14:25 EST. Orders: Orders AMB Hemoglobin A1c Today E11.9 - Type 2 diabetes mellitus without complications Medications: Changed From pen needle, diabetic (BD Ultra-Fine Lesli Pen Needle) As directed 100 ea 0RF E11.9 - Type 2 diabetes mellitus without complications To pen needle, diabetic (BD Ultra-Fine Lesli Pen Needle) daily use 100 ea 3RF E11.9 - Type 2 diabetes mellitus without complications From lisinopril 20 mg PO DAILY 90 tabs 1RF To lisinopril please take this new dose 30 mg PO DAILY 90 tabs 1RF Refilled gabapentin 800 mg PO Q8H 90 days 270 tabs 0RF lisinopril 20 mg PO DAILY 90 tabs 1RF apixaban (Eliquis) 5 mg PO BID 90 days 180 tabs 1RF 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
== END 2023-08-22 14:40 | disposition home or self-care (01) ==
PROVIDERS: PCP Nurse Practitioner Family; Visit Provider Nurse Practitioner Family
DX: E11.9 Type 2 diabetes mellitus without complications (principal)
CPT/HCPCS: 83036; 99213

== ENCOUNTER 2023-10-19 11:05 | Outpatient (AMB) | payer OTHER, SELFPAY ==
[2023-10-19 11:26] VITALS: BP 132/84; PULSE 71; TEMP 36.9; O2SAT 98; BMI 41.0
--- NOTE | 2023-10-19 11:26 | AM.OFFWIN_ITS ---
Intake Vital Signs 10/19/23 11:26 Height 5 ft 10 in Weight 286 lb BMI 41.0 BP 132/84 Blood Pressure Location Lt brachial Position Sitting Pulse 71 Pulse Source Pulse Oximeter Temp 98.5 F Temp Source Oral Pulse Oximetry (%) 98 Oxygen Delivery Method Room Air Intake Visit Reasons: bilat leg swelling and weeping-Diabetic Intake Note: pt here c/o bilateral leg swelling with discharge. Cut left leg a few months ago. Wound,not healing Patient Tobacco Use Status: Current everyday Tobacco user Allergies metformin Allergy (Severe, Verified 10/19/23 11:27) Itching Do you need a note to return to daycare/school/sports/work: No HPI bilat leg swelling and weeping-Diabetic HPI Details This note is constructed using voice recognition software. While every effort has been made to ensure accuracy, hammer runner errors may have been included. The patient is a 63 year old male with history of diabetes who presents to the clinic today with bilateral leg swelling and weeping. He notes that he had several year history of leg edema and is treated on diuretics. The swelling is not worse but when he also has a wound to his left anterior lower leg he was concerned that this could be an infection. He reports that he started with a blister, which he accidentally touched and it popped leaking clear fluid. He has had no pain, fever, chills, or known redness to the area. The area still leaks. He is washing this with peroxide and then applying Neosporin and a Band-Aid. [facility] Medical History HTN (hypertension) Cataract Lumbar spondylitis Smoker COPD (chronic obstructive pulmonary disease) Erythrocytosis Deep vein thrombosis Blood clotting disorder Diabetes Surgical History History of surgery on arm Family History Mother No problems noted. Father No problems noted. Social History Housing: Apartment Alcohol intake: former Patient Tobacco Use Status: Current everyday Tobacco user Tobacco use type: Cigarette Cigarette Packs Per Day: 1.5 e-Cigarette/Vaping Use: Never Used Second Hand Smoke Exposure: No service: No Current occupational status: retired Cognitive needs: Yes (cane) Hearing needs: No Vision needs: No Review of Systems Const All systems reviewed & are unremarkable except as noted in HPI and below Physical Exam Vital Signs: Last Vital Signs Temp 98.5 F 10/19/23 11:26 Pulse 71 10/19/23 11:26 BP 132/84 10/19/23 11:26 Pulse Ox 98 10/19/23 11:26 Oxygen Delivery Method Room Air 10/19/23 11:26 BMI result Body Mass Index 41.0 Const General: cooperative, healthy appearing, comfortable, no acute distress and alert Orientation/consciousness: patient oriented x3 Limitations: no limitations Resp Effort & Inspection: normal respiratory effort and able to speak in complete sentences Auscultation: clear to auscultation bilaterally Cardio Jugular venous distension: no JVD Palpation: normal PMI Rate: regular rate Heart sounds: S1 normal heart sound present, S2 normal heart sound present, no click, no gallops, no murmurs and no rubs Skin Other: Left lower anterior extremity with open wound with serosanguineous drainage, surrounding erythema, and warmth. Neuro General: patient oriented x3 Extrem Other: Negative Homans General: Yes full ROM, Yes capillary refill normal, Yes normal exam except as noted and Yes edema (+1 bilateral lower extremity.) Psych Appearance: grossly normal Mental Status: mental status grossly normal Speech and movement: Normal speech and movement present Affect: normal affect Assessment & Plan Assessment & Plan (1) Cellulitis: Code(s): L03.90 - Cellulitis, unspecified Qualifiers: Site of cellulitis: extremity Site of cellulitis of extremity: lower e xtremity Laterality: left Qualified Code(s): L03.116 - Cellulitis of left lower limb Plan: Antimicrobial therapy initiated for patient. Advised patient to keep area clean and dry. Advised patient to avoid Neosporin as this has been proven not to be effective for wound resolution. Advised patient to monitor for worsening symptoms such as streaking. (2) Leg edema: Code(s): R60.0 - Localized edema Plan: Chronic in nature, patient remains on diuretic therapy. No concern for new feature given physical examination. This is also consistent with previous examination by PCP. Advised patient to elevate legs, continue diuretics, and follow up with worsening. Plan See above for full details and plan. Medications: New cephalexin 500 mg PO QID 7 days 28 caps 0RF Coding Level of Care Code Est Pt Level 4 (99309) Diagnoses Cellulitis of left lower extremity L03.116 Site of cellulitis: extremity Site of cellulitis of extremity: lower extremity Laterality: left Leg edema R60.0 Time Spent (min) 30
== END 2023-10-19 14:32 | disposition home or self-care (01) ==
PROVIDERS: PCP Nurse Practitioner Family; Visit Provider Registered Nurse
DX: L03.116 Cellulitis of left lower limb (principal); R60.0 Localized edema
CPT/HCPCS: 99214

== ENCOUNTER 2023-11-12 13:56 | Outpatient (AMB) | payer OTHER, SELFPAY ==
--- NOTE | 2023-11-12 13:58 | MHC.PC.OV ---
Vital Signs 11/12/23 13:59 11/12/23 14:40 Height 5 ft 10 in Weight 282 lb BMI 40.5 BP 150/80 H 138/78 Blood Pressure Location Rt brachial Lt brachial Position Sitting Sitting Pulse 90 Pulse Source Pulse Oximeter Pulse Oximetry (%) 94 Oxygen Delivery Method Room Air Intake Visit Reasons: f/u Intake Note: pt is here for follow up, DM Department Clerk Required: No Allergies metformin Allergy (Severe, Verified 11/12/23 13:59) Itching Tobacco use date assessed: 05/16/23 Dental Screening Dental Screen Date: 05/16/23 HPI f/u HPI Details Pt is a diabetic, on an GREGORY and a statin. A1C in office today is 6.4. Microalbumin is up to date. Denies polyuria, polydipsia, does report neuropathy. Pt denies any signs and symptoms of hypoglycemia and does know how to correct it. Pt c/o cough. He reports that this is mostly dry but is intermittently productive. Will stop lisinopril and start losartan-hydrochlorothiazide 50-12.5mg (pt has lymphedema of his BLE). He reported compression socks he has difficulty using. Usually edema goes down with BLE elevation. denies any fevers, chills, CP, SOB. [facility] Medical History HTN (hypertension) Cataract Lumbar spondylitis Smoker COPD (chronic obstructive pulmonary disease) Erythrocytosis Deep vein thrombosis Blood clotting disorder Diabetes Surgical History History of surgery on arm Family History Mother No problems noted. Father No problems noted. Social History Housing: Apartment Alcohol intake: former Patient Tobacco Use Status: Current everyday Tobacco user Tobacco use type: Cigarette Cigarette Packs Per Day: 1.5 e-Cigarette/Vaping Use: Never Used Second Hand Smoke Exposure: No service: No Current occupational status: retired Cognitive needs: Yes (cane) Hearing needs: No Vision needs: No Questionnaire PHQ-9 Over the last 2 weeks, how often have you been bothered by any of the following problems? 1. Little interest or pleasure in doing things: not at all 2. Feeling down, depressed, or hopeless: not at all 3. Trouble falling or staying asleep, or sleeping too much: not at all 4. Feeling tired or having little energy: not at all 5. Poor appetite or overeating: not at all 6. Feeling bad about yourself - or that you are a failure or have let yourself or your family down: not at all 7. Trouble concentrating on things, such as reading the newspaper or watching television: not at all 8. Moving or speaking so slowly that other people could have noticed. Or the opposite - being so fidgety or restless that you have been moving around a lot more than usual: not at all 9. Thoughts that you would be better off or of hurting yourself in some way: not at all Total score: 0 Depression Screening Interpretation: Negative Depression Screening Done: Yes 43521 - PHQ-9 Billing: Yes Source: Developed by Drs. Jorge Roepr, Ct [place], Jeremy Velasquez and colleagues, with an educational magui from [employer] Thrive Questionnaire Date Thrive assessed: 11/12/23 I am a: Patient What is your living situation today?: I have a steady place to live Within the past 12 months, did the food you bought not last and you didn't have the money to get more?: Never true Within the past 12 months, did you worry whether your food would run out before you got money to buy more?: Never true Do you have trouble paying for medicines?: No Do you have trouble getting transportation to medical appointments?: No Do you have trouble paying your heating and electricity bill?: No Do you have trouble taking care of your child, family member or friend?: No Do you have trouble with day-to-day activities such as bathing, preparing meals, shopping, managing finances, etc.?: No Are you currently unemployed and looking for a job?: No Are you interested in more education?: No Please select the resources that you would like help with: None Currently or been in a relationship where the following occur: I choose not to answer THRIVE Score: 0 AUDIT C Alcohol Use Questionnaire (AUDIT-C) 1. How often do you have a drink containing alcohol?: Never 3. How often do you have six or more drinks on one occasion?: Never Total Score: 0 Score Reviewed/Action Taken: Yes MATTEO-7 AMB Questionnaire MATTEO-7 Date MATTEO - 7 assessed: 11/12/23 Feeling nervous, anxious, or on edge: 0 = Not at all Not being able to stop or control worryin = Not at all Worrying too much about different things: 0 = Not at all Trouble relaxin = Not at all Being so restless that it is hard to sit still: 1 = Several days Becoming easily annoyed or irritable: 1 = Several days Feeling afraid as if something awful might happen: 0 = Not at all Total MATTEO-7 score (0-4 normal; 5-9 mild; 10-14 moderate; 15-21 severe): 2 Source: Developed by Drs. Jorge Roper, Ct [place], Jeremy Velasquez and colleagues, with an educational magui from [employer] MATTEO-7 Assessment Billing MATTEO-7 Assessment Tool: MATTEO-7 Assessment 30596 Review of Systems Const Reports as per HPI Physical exam (Primary Care) Vital Signs: Last Vital Signs Pulse 90 11/12/23 13:59 BP 138/78 11/12/23 14:40 Pulse Ox 94 11/12/23 13:59 Oxygen Delivery Method Room Air 11/12/23 13:59 BMI result Body Mass Index 40.5 Tobacco/Smoking Status: Tobacco use Status Tobacco use date assessed 05/16/23 11/12/23 13:58 Patient Tobacco Use Status Current everyday Tobacco 11/12/23 13:58 Tobacco use type Cigarette 11/12/23 13:58 e-Cigarette/Vaping Use Never Used 11/12/23 13:58 PHQ-9: PHQ-9 Score PHQ-9: Total score 0 11/12/23 15:49 Depression Screening Interpretation: Negative Thrive Assessment: Date of Thrive Assessment Date Thrive assessed 11/12/23 11/12/23 14:01 Currently or been in a relationship where the following occur: I choose not to answer Const General: cooperative Nutritional Appearance: obese morbidly obese Orientation/consciousness: patient oriented x3 Resp Other: lungs diminished, very faint crackles to bases Effort & Inspection: normal respiratory effort Cardio Rate: regular rate Rhythm: regular rhythm Heart sounds: S1 normal heart sound present and S2 normal heart sound present Neuro General: patient oriented x3 Extrem Other: bilat feet: + sensation with use of monofilament, + dorsalis pedis pulses, lymphedema noted to BLE. Papular lesions, especially to anterior BLE. Right lower extremity: edema Details: pitting and 2+ Left lower extremity: edema Details: pitting and 2+ Psych Appearance: grossly normal Mental Status: mental status grossly normal Speech and movement: Normal speech and movement present Affect: normal affect Attitude: cooperative Thought process: Normal thought process present Thought content: Normal thought content present Insight: Good insight present (Psych) Judgement: Good judgement present (Psych) Results AMB Hemoglobin A1c AMB Hemoglobin A1c 6.4 % Last Edit by Mich Salazar CMA on 11/12/23 15:57 Assessment and Plan Assessment & Plan (1) HTN (hypertension): Code(s): I10 - Essential (primary) hypertension Plan: stopped lisinopril, start losartan-HCTZ (2) Diabetes: Code(s): E11.9 - Type 2 diabetes mellitus without complications Qualifiers: Diabetes mellitus type: type 2 Diabetes mellitus longterm insulin use: without longterm use Diabetes mellitus complication status: without complication Qualified Code(s): E11.9 - Type 2 diabetes mellitus without complications Plan: currently controlled, will cont to monitor Plan The patient agreed to the use of a medical collections specialist for this encounter. Scribed for ROMAN Ramos by Genevieve Morel medical collections specialist, on 11/12/2023 at 14:15 EST. Medications: New losartan-hydrochlorothiazide 50-12.5 mg 1 tab PO DAILY 90 days 90 tabs 0RF Refilled gabapentin 800 mg PO Q8H 90 days 270 tabs 0RF albuterol sulfate 90 mcg/actuation 1 inh inhalation QID 90 days PRN 6.7 grams 2RF shortness of breath or wheezing albuterol sulfate 1.25 mg (1.5 mL) inhalation Q6H 90 days 540 mL 3RF Discontinued lisinopril please take this new dose Discontinued Reason: Doctor's Order 30 mg PO DAILY 90 tabs 1RF Coding Level of Care Code Est Pt Level 3 (34837) Diagnoses HTN (hypertension) I10 Type 2 diabetes mellitus without complication, without long-term current use of insulin E11.9 Diabetes mellitus type: type 2 Diabetes mellitus longterm insulin use: without salvage determiner use Diabetes mellitus complication status: without complication Additional Codes MATTEO-7 Assessment Billing - MATTEO-7 Assessment Tool: MATTEO-7 Assessment 98390 ([id number])
[2023-11-12 13:59] VITALS: BP 150/80; PULSE 90; O2SAT 94; BMI 40.5
[2023-11-12 14:40] VITALS: BP 138/78
== END 2023-11-12 14:41 | disposition home or self-care (01) ==
PROVIDERS: PCP Nurse Practitioner Family; Visit Provider Nurse Practitioner Family
DX: I10 Essential (primary) hypertension (principal); E11.9 Type 2 diabetes mellitus without complications
CPT/HCPCS: 83036; 99213

== ENCOUNTER 2024-05-06 09:58 | Outpatient (REF) | payer OTHER, SELFPAY ==
[2024-05-06 10:20] LABS: MANUAL DIFF FLAG NO
[2024-05-06 11:26] LABS: Basophils Percent Auto 0.3 % (0-2); Eosinophils Absolute Auto 0.1 X10*3/uL (0.0-0.4); Eosinophils Percent Auto 2.2 % (0-4); Hemoglobin 19.2 g/dl (14.0-18.0); Imm Gran Abs Auto 0.04 X10*3/uL (0.00-0.03); Imm Gran Pct Auto 0.7 % (0.0-0.4); Lymphocytes Absolute Auto 1.3 X10*3/uL (1.2-4.9); Lymphocytes Percent Auto 22.9 % (20-40); Mean Corpuscular HGB Conc 33.1 g/dl (31.0-36.0); Mean Corpuscular Hemoglobin 29.2 pg (27.0-33.0); Mean Corpuscular Volume 88.3 fL (80.0-98.0); Mean Platelet Volume 11.8 fL (9.4-12.4); Monocytes Absolute Auto 0.5 X10*3/uL (0.1-1.2); Neutrophils Absolute Auto 3.9 x10*3/uL (2.0-8.3); Neutrophils Percent Auto 65.9 % (45-73); Platelet Count 143 X10*3/uL (160-400); Red Blood Count 6.57 X10*6/uL (4.60-5.80); Red Cell Distribution Width 16.1 % (11.0-16.0); White Blood Count 5.9 X10*3/uL (4.8-10.8)
[2024-05-06 11:31] LABS: Estimated Average Glucose 134 mg/dL; Hemoglobin A1C 216.2093 umol/L; Hemoglobin A1c % 6.3 % (<6.0); Total Hemoglobin (HGBA1C) 4738.4944 umol/L
[2024-05-06 12:02] LABS: Appearance Urine Clear; Color Urine Yellow; Glucose Urine UA Negative (Negative); Leukocyte Esterase Urine Negative (Negative); Nitrite Urine Negative (Negative); PH 5.5 (5.0-9.0); Urine Blood Negative (Negative); Urine Ketones Negative (Negative); Urine Protein Negative (Neg-Trace)
[2024-05-06 12:48] LABS: Alanine Aminotransferase 21 U/L (0-40); Albumin Level 4.2 g/dL (3.5-5.0); Alkaline Phosphatase 94 U/L (39-117); Anion Gap 10 (12-20); Aspartate Amino Transferase 28 U/L (5-37); Bilirubin Total 1.4 mg/dL (0.0-1.0); Blood Urea Nitrogen 10 mg/dL (9-16); Calcium 9.1 mg/dL (8.4-10.2); Carbon Dioxide 26 mmol/L (22-29); Chloride 109 mmol/L (96-108); Cholesterol 107 mg/dL (<200); Estimated Glomerular Filt Rate > 60; Glucose Fasting 88 mg/dL (60-99); HDL Cholesterol 45 mg/dL (>40); LDL Cholesterol Calculated 46 mg/dL (<100); Potassium 3.8 mmol/L (3.3-5.1); Sodium 141 mmol/L (135-145); Total Protein 7.7 g/dL (6.5-8.0); Triglycerides 82 mg/dL (<150)
[2024-05-06 13:12] LABS: Creatinine Urine 123.52 mg/dL; Microalbum/Creatinine Ratio Ur 24.2 ug/mg cr (<30)
== END 2024-05-06 09:59 | disposition home or self-care (01) ==
LOC: HO.LAB 09:58
PROVIDERS: PCP Nurse Practitioner Family; Visit Provider Nurse Practitioner Family
DX: E11.9 Type 2 diabetes mellitus without complications (principal)
CPT/HCPCS: 36415; 80053; 80061; 81003; 82043; 82570; 83036; 84443; 85025

== ENCOUNTER 2024-05-13 13:37 | Outpatient (AMB) | payer OTHER, SELFPAY ==
--- NOTE | 2024-05-13 13:39 | MHC.PC.OV ---
Vital Signs 05/13/24 13:48 Height 5 ft 10 in Weight 279 lb BMI 40.0 BP 140/80 H Blood Pressure Location Lt brachial Position Sitting Pulse 87 Pulse Source Pulse Oximeter Temp 97.8 F Temp Source Oral Pulse Oximetry (%) 97 Oxygen Delivery Method Room Air Intake Visit Reasons: DM followup Intake Note: pt is here for DM f.up Desktop Support Specialist Required: No Accompanied by: Self / Same As Patient Allergies metformin Allergy (Severe, Verified 05/13/24 13:49) Itching Medication List - Last Reconciled 05/13/24 by Martin Adams AIR TURNING MACHINE FEEDER- albuterol sulfate 1.25 mg (1.5 mL) inhalation Q6H 90 days albuterol sulfate 90 mcg/actuation 1 inh inhalation QID PRN 90 days amlodipine 2.5 mg PO DAILY apixaban (Eliquis) 5 mg PO BID 90 days blood sugar diagnostic (FreeStyle Lite Strips) tid blood sugar diagnostic test blood sugar three times a day flash glucose scanning reader (FreeStyle Maria Del Rosario 2 [place]) As directed flash glucose sensor (FreeStyle Maria Del Rosario 2 Sensor kit) Test blood sugar 4 times per day gabapentin 800 mg PO Q8H 90 days insulin glargine (Lantus Solostar U-100 Insulin) 75 units (0.75 mL) subcut DAILY lancets (FreeStyle Lancets) As directed losartan-hydrochlorothiazide 50-12.5 mg 1 tab PO DAILY 90 days pen needle, diabetic (BD Ultra-Fine Lesli Pen Needle) daily use pioglitazone 15 mg PO DAILY simvastatin 20 mg PO BEDTIME Tobacco use date assessed: 05/13/24 Dental Screening Dental Screen Date: 05/13/24 Did you have a dental visit in the last 12 months?: Yes Did you have a dental problem in the last 6 months where you did not have access to dental care?: No Was dental information given to patient?: Patient has dentist HPI DM followup HPI Details Chief Complaint The patient presents for a follow-up of diabetes and reports bilateral knee pain. History of Present Illness The patient is a 63-year-old male presenting with a follow-up of type 2 diabetes mellitus and associated management concerns. His recent hemoglobin A1c level is 6.3%, indicating good glycemic control, and he denies any current symptoms of neuropathy, polyuria, or polydipsia. He adheres to his medication regimen and is accompanied by his sister, a nurse, who assists in his care. Additionally, the patient reports bilateral knee pain characterized by positive crepitus observed during the extension and flexion of the knees. He describes the pain as arthritic in nature, with no current swelling. Previous examinations have shown negative Macie's and Betty's tests. The pain does not seem to result from any acute injury but appears to match osteoarthritic processes. There is past evidence of elongated toenails with onychomycosis noted bilaterally. Social History - The patient smokes heavily and has declined pulmonary function testing, pulmonary referral, and participation in a low-dose CAT scan. Also denied any type of colon screen - He is accompanied by his sister, who is a nurse and aids in his care management. Health Maintenance - Recent hemoglobin A1c level is 6.3%. - Referral to podiatry for onychomycosis management. Review of Systems - Musculoskeletal: Reports bilateral knee pain with crepitus. - Endocrine: Denies current polyuria and polydipsia associated with diabetes. - Neurologic: Denies symptoms of neuropathy. Physical Exam General: Cooperative, healthy appearing, comfortable, no acute distress and well developed, morbidly obese Orientation: Patient oriented x3 Limitations: No limitations Head: Normal to inspection Ears: Hearing grossly normal bilaterally Nose: Normal external nose present Face and sinus: Normal facial exam Eyes: Appearance normal, both eyes and all related structures Neck: Normal visual inspection and Yes full ROM Respiratory: Normal respiratory effort and able to speak in complete sentences. Clear to auscultation bilaterally Cardiovascular: Regular rate and rhythm. Normal S1 and S2 GI: Normal to inspection. Soft to palpation and nontender Skin: No rashes or lesions noted Neuro: Patient oriented x3 Extremities: Onychomycosis noted bilaterally on toenails, elongated. Positive sensation with use of monofilament. Bilateral knee pains with positive crepitus noted with extension to flexion. Negative Lachmans, negative McMurrays. No active swelling currently. Crepitus noted bilaterally. Results Plan - Recommend continuation of current diabetes management plan due to good control reflected by A1c levels. - Referral to podiatry for evaluation and management of bilateral toenail onychomycosis. - Initiate bilateral knee X-ray to assess osteoarthritic changes and further explore knee pain complaints. - Reinforce counseling regarding smoking cessation due to impact on overall health. Discussion Notes I discussed with the patient the management of his type 2 diabetes, emphasizing the importance of continuing his current medication regimen given his well-controlled A1c. We addressed his knee pain, focusing on the likelihood of osteoarthritis, and the need for X-ray assessment to tailor management effectively. I advised on the significance of podiatry care for his toenail condition. Smoking cessation counseling was provided, highlighting the associated health risks and benefits of quitting. The patient expressed understanding but was noncommittal regarding changes. Follow-up was discussed to evaluate progress and intervention outcomes. Patient Instructions - Continue taking diabetes medications as prescribed. - Attend podiatry appointment for toenail evaluation. - Schedule and complete the advised bilateral knee X-ray. - Consider resources for smoking cessation to improve overall health. - Return for follow-up as agreed to assess ongoing management and care effectiveness. l [facility] Medical History HTN (hypertension) Cataract Lumbar spondylitis Smoker COPD (chronic obstructive pulmonary disease) Erythrocytosis Deep vein thrombosis Blood clotting disorder Diabetes Surgical History History of surgery on arm Family History Mother No problems noted. Father No problems noted. Social History Housing: Apartment Alcohol intake: former Patient Tobacco Use Status: Current everyday Tobacco user Tobacco use type: Cigarette Cigarette Packs Per Day: 1.5 e-Cigarette/Vaping Use: Never Used Second Hand Smoke Exposure: No service: No Current occupational status: retired Cognitive needs: Yes (cane) Hearing needs: No Vision needs: No Questionnaire PHQ-9 Over the last 2 weeks, how often have you been bothered by any of the following problems? 1. Little interest or pleasure in doing things: not at all 2. Feeling down, depressed, or hopeless: not at all 3. Trouble falling or staying asleep, or sleeping too much: not at all 4. Feeling tired or having little energy: not at all 5. Poor appetite or overeating: not at all 6. Feeling bad about yourself - or that you are a failure or have let yourself or your family down: not at all 7. Trouble concentrating on things, such as reading the newspaper or watching television: not at all 8. Moving or speaking so slowly that other people could have noticed. Or the opposite - being so fidgety or restless that you have been moving around a lot more than usual: not at all 9. Thoughts that you would be better off or of hurting yourself in some way: not at all Total score: 0 Depression Screening Interpretation: Negative Depression Screening Done: Yes 23532 - PHQ-9 Billing: Yes Source: Developed by Drs. Jorge Roper, Ct Hopkins, Jeremy Velasquez and colleagues, with an educational magui from [employer]. Thrive Questionnaire Date Thrive assessed: 05/13/24 I am a: Patient What is your living situation today?: I have a steady place to live Within the past 12 months, did the food you bought not last and you didn't have the money to get more?: Often true Within the past 12 months, did you worry whether your food would run out before you got money to buy more?: Often true Do you have trouble paying for medicines?: Yes Do you have trouble getting transportation to medical appointments?: No Do you have trouble paying your heating and electricity bill?: No Do you have trouble taking care of your child, family member or friend?: No Do you have trouble with day-to-day activities such as bathing, preparing meals, shopping, managing finances, etc.?: No Are you currently unemployed and looking for a job?: No Are you interested in more education?: No Please select the resources that you would like help with: None Currently or been in a relationship where the following occur: No concerns reported THRIVE Score: 2 AUDIT C Alcohol Use Questionnaire (AUDIT-C) 1. How often do you have a drink containing alcohol?: Never 3. How often do you have six or more drinks on one occasion?: Never Total Score: 0 Score Reviewed/Action Taken: Yes MATTEO-7 AMB Questionnaire MATTEO-7 Date MATTEO - 7 assessed: 05/13/24 Feeling nervous, anxious, or on edge: 0 = Not at all Not being able to stop or control worryin = Not at all Worrying too much about different things: 0 = Not at all Trouble relaxin = Several days Being so restless that it is hard to sit still: 1 = Several days Becoming easily annoyed or irritable: 1 = Several days Feeling afraid as if something awful might happen: 0 = Not at all Total MATTEO-7 score (0-4 normal; 5-9 mild; 10-14 moderate; 15-21 severe): 3 Source: Developed by Drs. Jorge Roper, Ct Hopkins, Jeremy Velasquez and colleagues, with an educational magui from [employer]. MATTEO-7 Assessment Billing MATTEO-7 Assessment Tool: MATTEO-7 Assessment 68553 Physical exam (Primary Care) Vital Signs: Last Vital Signs Temp 97.8 F 05/13/24 13:48 Pulse 87 05/13/24 13:48 BP 140/80 H 05/13/24 13:48 Pulse Ox 97 05/13/24 13:48 Oxygen Delivery Method Room Air 05/13/24 13:48 BMI result Body Mass Index 40.0 Tobacco/Smoking Status: Tobacco use Status Tobacco use date assessed 05/13/24 05/13/24 13:50 Patient Tobacco Use Status Current everyday Tobacco 05/13/24 13:39 Tobacco use type Cigarette 05/13/24 13:39 e-Cigarette/Vaping Use Never Used 05/13/24 13:39 PHQ-9: PHQ-9 Score PHQ-9: Total score 0 05/13/24 13:50 Depression Screening Interpretation: Negative Thrive Assessment: Date of Thrive Assessment Date Thrive assessed 05/13/24 05/13/24 13:50 Currently or been in a relationship where the following occur: No concerns reported Coding Level of Care Code Est Pt Level 3 (30453) Diagnoses Bilateral knee pain M25.561; M25.562 Type 2 diabetes mellitus without complication, without long-term current use of insulin E11.9 Diabetes mellitus complication status: without complication Diabetes mellitus prison insulin use: without termite control servicer use Diabetes mellitus type: type 2 Screening PSA (prostate specific antigen) Z12.5 Additional Codes MATTEO-7 Assessment Billing - MATTEO-7 Assessment Tool: MATTEO-7 Assessment 98413 ([id number]) PHQ-9 - 75209 - PHQ-9 Billing: Yes ([id number]) Assessment & Plan Assessment & Plan (1) Bilateral knee pain: Code(s): M25.561 - Pain in right knee; M25.562 - Pain in left knee Category: Medical (2) Diabetes: Code(s): E11.9 - Type 2 diabetes mellitus without complications Category: Medical Qualifiers: Diabetes mellitus complication status: without complication Diabetes mellitus prison insulin use: without termite control servicer use Diabetes mellitus type: type 2 Qualified Code(s): E11.9 - Type 2 diabetes mellitus without complications (3) Screening PSA (prostate specific antigen): Code(s): Z12.5 - Encounter for screening for malignant neoplasm of prostate Category: Medical Plan . Orders: Orders XR knee LT 2V Today M25.561 - Pain in right knee, M25.562 - Pain in left knee Comprehensive Bruni. Panel Fast Today E11.9 - Type 2 diabetes mellitus without complications TSH reflex Free T4 Today E11.9 - Type 2 diabetes mellitus without complications Lipid Panel Today E11.9 - Type 2 diabetes mellitus without complications Pneumococcal 20 Immunization Today Z23 - Encounter for immunization XR knee RT 2V Today M25.561 - Pain in right knee, M25.562 - Pain in left knee Complete Blood Count Auto Diff Today E11.9 - Type 2 diabetes mellitus without complications UA CC w/rflx Micro + Cult Today E11.9 - Type 2 diabetes mellitus without complications Prostate Specific Antigen Scr Today Z12.5 - Encounter for screening for malignant neoplasm of prostate Referrals Podiatry Referral E11.9 - Type 2 diabetes mellitus without complications Medications: New pneumoc 20-anita conj-dip cr(PF) 0.5 mL IM ONCE 0.5 mL 0RF Z23 - Encounter for immunization Refilled albuterol sulfate 90 mcg/actuation 1 inh inhalation QID 90 days PRN 6.7 grams 2RF shortness of breath or wheezing
[2024-05-13 13:48] VITALS: BP 140/80; PULSE 87; TEMP 36.6; O2SAT 97; BMI 40.0
== END 2024-05-13 14:54 | disposition home or self-care (01) ==
PROVIDERS: PCP Nurse Practitioner Family; Visit Provider Nurse Practitioner Family
DX: M25.561 Pain in right knee (principal); M25.562 Pain in left knee; E11.9 Type 2 diabetes mellitus without complications; Z12.5 Encounter for screening for malignant neoplasm of prostate; Z23 Encounter for immunization

== ENCOUNTER 2024-05-13 13:37 | Outpatient (REF) | payer OTHER, SELFPAY ==
--- NOTE | ~2024-05-13 | XR_ITS ---
EXAMINATION: XR KNEE, RIGHT CLINICAL INFORMATION: M25.561 - Pain in right knee COMPARISON: None available. TECHNIQUE: Two views of the right knee. FINDINGS: No fracture, dislocation, or suspicious bone lesion. Normal alignment. Mild medial and patellofemoral compartment joint space narrowing. Mild spurring of the tibial spines. There is no joint effusion. There is both superior and inferior patellar enthesopathy. There is prepatellar soft tissue swelling, possibly representing bursitis. There is enthesopathy of the tibial tuberosity. No soft tissue abnormalities aside from early vascular calcifications. XR/XR knee RT 2V IMPRESSION: 1. Prepatellar soft tissue swelling with associated patellar enthesopathy. Consider prepatellar bursitis versus acute enthesopathy. 2. Mild medial and patellofemoral compartment arthritis. 3. Enthesopathy of the tibial tuberosity. 4. No joint effusion. Electronically signed by: Saad Sterling MD 05/14/2024 10:53 AM MAY
--- NOTE | ~2024-05-13 | XR_ITS ---
EXAMINATION: XR KNEE, LEFT CLINICAL INFORMATION: Pain in left knee. COMPARISON: X-ray report dated October 28, 2015 and September 23, 2014. TECHNIQUE: Two views of the left knee. FINDINGS: There is joint space narrowing involving the medial and lateral compartments. There is sclerosis of the articular surface in the tibial plateau. There is chondrocalcinosis in the lateral compartment. No acute cortical disruption or gross malalignment. No suprapatellar bursa joint effusion. There is exostosis at the quadriceps tendon and patellar tendon insertions. Focal calcifications in the popliteal region. XR/XR knee LT 2V IMPRESSION: Tricompartmental osteoarthrosis, left knee. Consider CPPD. Electronically signed by: Catracho Tanner MD 05/14/2024 11:27 AM MAY CASIANO
== END 2024-05-13 13:38 | disposition home or self-care (01) ==
LOC: HO.HMGCX 13:37
PROVIDERS: PCP Nurse Practitioner Family; Visit Provider Nurse Practitioner Family
DX: Z23 Encounter for immunization (principal); M25.561 Pain in right knee; M25.562 Pain in left knee; E11.9 Type 2 diabetes mellitus without complications
CPT/HCPCS: 73560; 90471; 90677; 96127; 99212

== ENCOUNTER → 2024-05-13 14:42 | Outpatient (BNV) | payer OTHER, SELFPAY | PROVIDERS: PCP Nurse Practitioner Family; Visit Provider Radiology Diagnostic Radiology | DX: M25.561 Pain in right knee (principal); M22.2X1 Patellofemoral disorders, right knee; M17.12 Unilateral primary osteoarthritis, left knee; M11.262 Other chondrocalcinosis, left knee | CPT/HCPCS: 73560 ==

== ENCOUNTER 2024-07-02 10:42 | Outpatient (AMB) | payer OTHER, SELFPAY ==
[2024-07-02 10:45] VITALS: BMI 40.0
--- NOTE | 2024-07-02 10:45 | MHC.OFFVIS ---
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 He describes his pains as sharp in nature. His pains have gotten worse over the last few years in spite of continued non operative treatments. He has failed the last 3 months of conservative treatment which has included a home exercise program, physical therapy exercises and Tylenol. He is not able to take anti-inflammatory medicines because he is on a blood thinner. The patient has had cortisone injections in the past. The injections gave him minimal relief and the cortisone injections raised his blood glucose. The patient is a diabetic. He does take insulin. He has not had a viscosupplementation injection. He wishes to hold off on surgery if at all possible. He has also tried Voltaren topical cream which gives him minimal relief. He states that his bilateral knee pains are interfering with his activities of daily living and his ability to sleep well through the night. Allergies metformin Allergy (Severe, Verified 07/02/24 10:52) Itching Medication List - Last Reconciled 07/02/24 by Julio Venegas MD albuterol sulfate 1.25 mg (1.5 mL) inhalation Q6H 90 days albuterol sulfate 90 mcg/actuation 1 inh inhalation QID PRN 90 days amlodipine 2.5 mg PO DAILY apixaban (Eliquis) 5 mg PO BID 90 days blood sugar diagnostic (FreeStyle Lite Strips) tid blood sugar diagnostic test blood sugar three times a day flash glucose scanning reader (FreeStyle Maria Del Rosario 2 [place]) As directed flash glucose sensor (FreeStyle Maria Del Rosario 2 Sensor kit) Test blood sugar 4 times per day gabapentin 800 mg PO Q8H 90 days insulin glargine (Lantus Solostar U-100 Insulin) 75 units (0.75 mL) subcut DAILY lancets (FreeStyle Lancets) As directed losartan-hydrochlorothiazide 50-12.5 mg 1 tab PO DAILY 90 days pen needle, diabetic (BD Ultra-Fine Lesli Pen Needle) daily use pioglitazone 15 mg PO DAILY simvastatin 20 mg PO BEDTIME [facility] Medical History HTN (hypertension) Cataract Lumbar spondylitis Smoker COPD (chronic obstructive pulmonary disease) Erythrocytosis Deep vein thrombosis Blood clotting disorder Diabetes Surgical History History of surgery on arm Family History Mother No problems noted. Father No problems noted. Social History Housing: Apartment Alcohol intake: former Patient Tobacco Use Status: Current everyday Tobacco user Tobacco use type: Cigarette Cigarette Packs Per Day: 1.5 e-Cigarette/Vaping Use: Never Used Second Hand Smoke Exposure: No service: No Current occupational status: retired Cognitive needs: Yes (cane) Hearing needs: No Vision needs: No Physical Exam Vital Signs: BMI result Body Mass Index 40.0 Const Other: Well-nourished well-developed very friendly male awake alert and oriented x3 in no acute distress Extrem Other: Bilateral lower extremity examination shows good capillary refill, no skin lesions noted, normal sensation light touch Bilateral knee examination shows minimal effusions, palpable crepitus with range of motion, pain with range of motion, no instability Results Reviewed Results Reviewed: X-rays of the patient's bilateral knee show joint space narrowing, subchondral sclerosis, no acute bony abnormalities Assessment & Plan Assessment & Plan (1) Osteoarthritis of left knee: Code(s): M17.12 - Unilateral primary osteoarthritis, left knee Category: Medical (2) Osteoarthritis of right knee: Code(s): M17.11 - Unilateral primary osteoarthritis, right knee Category: Medical Plan Mr. Louis presents with bilateral knee pains due to osteoarthritis. I had a lengthy discussion with the patient regarding the treatment options. He wishes to hold off on surgery if at all possible. I agree with this plan. I will see whether or not the patient's insurance company will cover a viscosupplementation injection, such as Durolane, for both of his knees. He is not able to tolerate cortisone injections because they elevate his blood glucose level. He will follow-up as instructed. Feel free to call me at any time should questions regarding his orthopedic management arise. Thank you very much for asking me to see this very friendly gentleman. I spent 20 minutes in reviewing the patient's records and imaging studies, seeing the patient and documenting in the medical record. Coding Level of Care Code New Pt Level 3 (76726) Complex EM visit Add On G2211 Diagnoses Osteoarthritis of left knee M17.12 Osteoarthritis of right knee M17.11
== END 2024-07-02 11:26 | disposition home or self-care (01) ==
LOC: HO.HOS 10:43
PROVIDERS: PCP Nurse Practitioner Family; Visit Provider Orthopaedic Surgery
DX: M17.0 Bilateral primary osteoarthritis of knee (principal)
CPT/HCPCS: 99203; G2211

== ENCOUNTER → 2024-07-02 10:42 | Outpatient (BNVA) | payer OTHER, SELFPAY | PROVIDERS: PCP Nurse Practitioner Family; Visit Provider Orthopaedic Surgery | DX: M17.0 Bilateral primary osteoarthritis of knee (principal) | CPT/HCPCS: 99202 ==

== ENCOUNTER 2024-08-14 10:54 | Outpatient (AMB) | payer OTHER, SELFPAY ==
--- NOTE | 2024-08-14 11:05 | MHC.OFFVIS ---
Vital Signs 08/14/24 11:08 Height 5 ft 10 in Weight 279 lb BMI 40.0 Intake Visit Reasons: Inj-Bilateral Knee Euflexxa #1 Intake Note: Kerwin is a 64 year old male who presents with complaints of bilateral knee pains. He describes his pains as sharp in nature. He has failed the last 3 months of conservative treatment which has included a home exercise program, physical therapy exercises, Tylenol and anti-inflammatory medicines. The patient states that because of his diabetes he can not tolerate cortisone injections. He wishes to hold off on surgery if at all possible. Allergies metformin Allergy (Severe, Verified 08/14/24 11:08) Itching Medication List - Last Reconciled 08/14/24 by Julio Venegas MD albuterol sulfate 1.25 mg (1.5 mL) inhalation Q6H 90 days albuterol sulfate 90 mcg/actuation 1 inh inhalation QID PRN 90 days amlodipine 2.5 mg PO DAILY apixaban (Eliquis) 5 mg PO BID 90 days blood sugar diagnostic (FreeStyle Lite Strips) tid blood sugar diagnostic test blood sugar three times a day flash glucose scanning reader (FreeStyle Maria Del Rosario 2 [place]) As directed flash glucose sensor (FreeStyle Maria Del Rosario 2 Sensor kit) Test blood sugar 4 times per day gabapentin 800 mg PO Q8H 90 days insulin glargine (Lantus Solostar U-100 Insulin) 75 units (0.75 mL) subcut DAILY lancets (FreeStyle Lancets) As directed losartan-hydrochlorothiazide 50-12.5 mg 1 tab PO DAILY 90 days pen needle, diabetic (BD Ultra-Fine Lesli Pen Needle) daily use pioglitazone 15 mg PO DAILY simvastatin 20 mg PO BEDTIME [facility] Medical History HTN (hypertension) Cataract Lumbar spondylitis Smoker COPD (chronic obstructive pulmonary disease) Erythrocytosis Deep vein thrombosis Blood clotting disorder Diabetes Surgical History History of surgery on arm Family History Mother No problems noted. Father No problems noted. Social History Housing: Apartment Alcohol intake: former Patient Tobacco Use Status: Current everyday Tobacco user Tobacco use type: Cigarette Cigarette Packs Per Day: 1.5 e-Cigarette/Vaping Use: Never Used Second Hand Smoke Exposure: No service: No Current occupational status: retired Cognitive needs: Yes (cane) Hearing needs: No Vision needs: No Physical Exam Vital Signs: BMI result Body Mass Index 40.0 Const Other: Well-nourished well-developed very friendly male awake alert and oriented x3 in no acute distress Extrem Other: Bilateral lower extremity examination shows good capillary refill, no skin lesions noted, normal sensation light touch Bilateral knee examination shows minimal effusions, palpable crepitus with range of motion, pain with range of motion, no instability Office Procedures AMB Joint Injection/Aspiration Joint Injection/Aspiration Primary Site: left knee Prep: site was prepped using aseptic technique Injected: 20 mg of (Euflexxa viscosupplementation) and 1% plain lidocaine Procedure: The patient tolerated the procedure well Coding 96328 - Large joint Procedure code (CPT) selection complete AMB Joint Injection/Aspiration Joint Injection/Aspiration Primary Site: right knee Prep: site was prepped using aseptic technique Injected: 20 mg of (Euflexxa viscosupplementation) and 1% plain lidocaine Procedure: The patient tolerated the procedure well Coding 39072 - Large joint Procedure code (CPT) selection complete Results Reviewed Results Reviewed: X-rays of the patient's bilateral knees taken previously show joint space narrowing, subchondral sclerosis, no acute bony abnormalities Assessment & Plan Assessment & Plan (1) Osteoarthritis of left knee: Code(s): M17.12 - Unilateral primary osteoarthritis, left knee Category: Medical (2) Osteoarthritis of right knee: Code(s): M17.11 - Unilateral primary osteoarthritis, right knee Category: Medical Plan Mr. Louis presents with bilateral knee pains due to osteoarthritis. The risks and benefits of bilateral knee Euflexxa injections were discussed at length with the patient. The patient wished to proceed. He tolerated the the 1st set of Euflexxa injections well. He will continue with his home exercise program. He will follow up next week as scheduled. Feel free to call me at any time should questions regarding his orthopedic management arise. I spent 20 minutes in reviewing the patient's records and imaging studies, seeing the patient and documenting in the medical record. Orders: Orders AMB Joint Injection/Aspiration Today M17.12 - Unilateral primary osteoarthritis, left knee AMB Joint Injection/Aspiration Today M17.11 - Unilateral primary osteoarthritis, right knee Coding Level of Care Code Est Pt Level 3 (29523) Complex EM visit Add On G2211 Diagnoses Osteoarthritis of left knee M17.12 Osteoarthritis of right knee M17.11 CPT Codes Coding - 15833 Large joint: 44842 - Large joint ([id number]) Coding - 15817 Large joint: 91913 - Large joint ([id number])
[2024-08-14 11:08] VITALS: BMI 40.0
== END 2024-08-14 11:46 | disposition home or self-care (01) ==
LOC: HO.HOS 10:54
PROVIDERS: PCP Nurse Practitioner Family; Visit Provider Orthopaedic Surgery
DX: M17.0 Bilateral primary osteoarthritis of knee (principal)
CPT/HCPCS: 20610; 99213

== ENCOUNTER → 2024-08-14 10:54 | Outpatient (BNVA) | payer OTHER, SELFPAY | PROVIDERS: PCP Nurse Practitioner Family; Visit Provider Orthopaedic Surgery | DX: M17.0 Bilateral primary osteoarthritis of knee (principal) | CPT/HCPCS: 20610; 99212; J2003; J7323 ==

== ENCOUNTER 2024-08-21 12:54 | Outpatient (AMB) | payer OTHER, SELFPAY ==
[2024-08-21 12:57] VITALS: BMI 40.0
--- NOTE | 2024-08-21 12:57 | MHC.OFFVIS ---
Vital Signs 08/21/24 12:57 Height 5 ft 10 in Weight 279 lb BMI 40.0 Intake Visit Reasons: Inj-Bilateral Knee Euflexxa #2 Intake Note: Kerwin is a 64 year old male who presents today for his second dose of bilateral knee Euflexxa injections. The patient states that he got mild relief from the 1st set of injections. He continues with his home exercise program. Allergies metformin Allergy (Severe, Verified 08/21/24 13:02) Itching Medication List - Last Reconciled 08/21/24 by Julio Venegas MD albuterol sulfate 1.25 mg (1.5 mL) inhalation Q6H 90 days albuterol sulfate 90 mcg/actuation 1 inh inhalation QID PRN 90 days amlodipine 2.5 mg PO DAILY apixaban (Eliquis) 5 mg PO BID 90 days blood sugar diagnostic (FreeStyle Lite Strips) tid blood sugar diagnostic test blood sugar three times a day flash glucose scanning reader (FreeStyle Maria Del Rosario 2 [place]) As directed flash glucose sensor (FreeStyle Maria Del Rosario 2 Sensor kit) Test blood sugar 4 times per day gabapentin 800 mg PO Q8H 90 days insulin glargine (Lantus Solostar U-100 Insulin) 75 units (0.75 mL) subcut DAILY lancets (FreeStyle Lancets) As directed losartan-hydrochlorothiazide 50-12.5 mg 1 tab PO DAILY 90 days pen needle, diabetic (BD Ultra-Fine Lesli Pen Needle) daily use pioglitazone 15 mg PO DAILY simvastatin 20 mg PO BEDTIME PFSH Medical History HTN (hypertension) Cataract Lumbar spondylitis Smoker COPD (chronic obstructive pulmonary disease) Erythrocytosis Deep vein thrombosis Blood clotting disorder Diabetes Surgical History History of surgery on arm Family History Mother No problems noted. Father No problems noted. Social History Housing: Apartment Alcohol intake: former Patient Tobacco Use Status: Current everyday Tobacco user Tobacco use type: Cigarette Cigarette Packs Per Day: 1.5 e-Cigarette/Vaping Use: Never Used Second Hand Smoke Exposure: No service: No Current occupational status: retired Cognitive needs: Yes (cane) Hearing needs: No Vision needs: No Physical Exam Vital Signs: BMI result Body Mass Index 40.0 Const Other: Well-nourished well-developed very friendly male awake alert and oriented x3 in no acute distress Extrem Other: Bilateral lower extremity examination shows good capillary refill, no skin lesions noted, normal sensation light touch Bilateral knee examination shows minimal effusions, palpable crepitus with range of motion, pain with range of motion, no instability Results Reviewed Results Reviewed: x-rays of the patient's bilateral knee show joint space narrowing, subchondral sclerosis, no acute bony abnormalities Assessment & Plan Assessment & Plan (1) Osteoarthritis of left knee: Code(s): M17.12 - Unilateral primary osteoarthritis, left knee Category: Medical (2) Osteoarthritis of right knee: Code(s): M17.11 - Unilateral primary osteoarthritis, right knee Category: Medical Plan Mr. Louis presents with bilateral knee pains due to osteoarthritis. The risks and benefits of a 2nd set of Euflexxa injections were discussed at length with the patient. The patient wished to proceed. He tolerated the injections well. He will continue with his home exercise program. He will follow up next week as scheduled. Feel free to call me at any time should questions regarding his orthopedic management arise. Orders: Orders AMB Joint Injection/Aspiration 08/21/24 M17.12 - Unilateral primary osteoarthritis, left knee AMB Joint Injection/Aspiration 08/21/24 M17.11 - Unilateral primary osteoarthritis, right knee Coding Level of Care Code Procedure Only Diagnoses Osteoarthritis of left knee M17.12 Osteoarthritis of right knee M17.11
== END 2024-08-21 13:22 | disposition home or self-care (01) ==
LOC: HO.HOS 12:55
PROVIDERS: PCP Nurse Practitioner Family; Visit Provider Orthopaedic Surgery
DX: M17.0 Bilateral primary osteoarthritis of knee (principal)
CPT/HCPCS: 20610

== ENCOUNTER → 2024-08-21 12:54 | Outpatient (BNVA) | payer OTHER, SELFPAY | PROVIDERS: PCP Nurse Practitioner Family; Visit Provider Orthopaedic Surgery | DX: M17.0 Bilateral primary osteoarthritis of knee (principal) | CPT/HCPCS: 20610; J2003; J7323 ==

== ENCOUNTER 2024-08-28 11:14 | Outpatient (AMB) | payer OTHER, SELFPAY ==
[2024-08-28 11:16] VITALS: BMI 40.0
--- NOTE | 2024-08-28 11:16 | MHC.OFFVIS ---
Vital Signs 08/28/24 11:16 Height 5 ft 10 in Weight 279 lb BMI 40.0 Intake Visit Reasons: Inj-Bilateral Knee Euflexxa #3 Intake Note: Kerwin is a 64 year old male who presents today for his third dose of bilateral knee Euflexxa injections. He states that he has gotten mild relief from the 1st 2 sets of injections. He continues with his home exercise program. Allergies metformin Allergy (Severe, Verified 08/21/24 13:02) Itching Medication List - Last Reconciled 08/28/24 by Julio Venegas MD albuterol sulfate 1.25 mg (1.5 mL) inhalation Q6H 90 days albuterol sulfate 90 mcg/actuation 1 inh inhalation QID PRN 90 days amlodipine 2.5 mg PO DAILY apixaban (Eliquis) 5 mg PO BID 90 days blood sugar diagnostic (FreeStyle Lite Strips) tid blood sugar diagnostic test blood sugar three times a day flash glucose scanning reader (FreeStyle Maria Del Rosario 2 [place]) As directed flash glucose sensor (FreeStyle Maria Del Rosario 2 Sensor kit) Test blood sugar 4 times per day gabapentin 800 mg PO Q8H 90 days insulin glargine (Lantus Solostar U-100 Insulin) 75 units (0.75 mL) subcut DAILY lancets (FreeStyle Lancets) As directed losartan-hydrochlorothiazide 50-12.5 mg 1 tab PO DAILY 90 days pen needle, diabetic (BD Ultra-Fine Lesli Pen Needle) daily use pioglitazone 15 mg PO DAILY simvastatin 20 mg PO BEDTIME PFSH Medical History HTN (hypertension) Cataract Lumbar spondylitis Smoker COPD (chronic obstructive pulmonary disease) Erythrocytosis Deep vein thrombosis Blood clotting disorder Diabetes Surgical History History of surgery on arm Family History Mother No problems noted. Father No problems noted. Social History Housing: Apartment Alcohol intake: former Patient Tobacco Use Status: Current everyday Tobacco user Tobacco use type: Cigarette Cigarette Packs Per Day: 1.5 e-Cigarette/Vaping Use: Never Used Second Hand Smoke Exposure: No service: No Current occupational status: retired Cognitive needs: Yes (cane) Hearing needs: No Vision needs: No Physical Exam Vital Signs: BMI result Body Mass Index 40.0 Extrem Other: Bilateral knee examination shows minimal effusions, palpable crepitus with range of motion, pain with range of motion, no instability Office Procedures AMB Joint Injection/Aspiration Joint Injection/Aspiration Primary Site: right knee Prep: site was prepped using aseptic technique Injected: 20 mg of (Euflexxa viscosupplementation) and 1% plain lidocaine Procedure: The patient tolerated the procedure well Coding - Large joint Procedure code (CPT) selection complete AMB Joint Injection/Aspiration Joint Injection/Aspiration Primary Site: left knee Prep: site was prepped using aseptic technique Injected: 20 mg of (Euflexxa viscosupplementation) and 1% plain lidocaine Procedure: The patient tolerated the procedure well Coding - Large joint Procedure code (CPT) selection complete Assessment & Plan Assessment & Plan (1) Osteoarthritis of left knee: Code(s): M17.12 - Unilateral primary osteoarthritis, left knee Category: Medical (2) Osteoarthritis of right knee: Code(s): M17.11 - Unilateral primary osteoarthritis, right knee Category: Medical Plan Mr. Louis presents with bilateral knee pains due to osteoarthritis. The risks and benefits of a 3rd set of Euflexxa viscosupplementation injections were discussed at length with the patient. The patient wished to proceed. He tolerated the injections well. He will continue with his home exercise program. He will contact me prior to his follow-up appointment in 3 months should any questions or concerns arise. Feel free to call me at any time should questions regarding his orthopedic management arise. Orders: Orders AMB Joint Injection/Aspiration Today M17.12 - Unilateral primary osteoarthritis, left knee AMB Joint Injection/Aspiration Today M17.11 - Unilateral primary osteoarthritis, right knee Coding Level of Care Code Procedure Only Diagnoses Osteoarthritis of left knee M17.12 Osteoarthritis of right knee M17.11 CPT Codes Coding - 17008 Large joint: 87778 - Large joint ([id number]) Coding - 10448 Large joint: 40072 - Large joint ([id number])
== END 2024-08-28 11:49 | disposition home or self-care (01) ==
LOC: HO.HOS 11:15
PROVIDERS: PCP Nurse Practitioner Family; Visit Provider Orthopaedic Surgery
DX: M17.0 Bilateral primary osteoarthritis of knee (principal)
CPT/HCPCS: 20610

== ENCOUNTER → 2024-08-28 11:14 | Outpatient (BNVA) | payer OTHER, SELFPAY | PROVIDERS: PCP Nurse Practitioner Family; Visit Provider Orthopaedic Surgery | DX: M17.0 Bilateral primary osteoarthritis of knee (principal) | CPT/HCPCS: 20610; J2003; J7323 ==

== ENCOUNTER 2024-10-28 09:30 | Outpatient (REF) | payer OTHER, SELFPAY ==
[2024-10-28 09:42] LABS: MANUAL DIFF FLAG NO
[2024-10-28 10:16] LABS: Hemoglobin 18.7 g/dl (14.0-18.0); Imm Gran Abs Auto 0.04 X10*3/uL (0.00-0.03); Imm Gran Pct Auto 0.6 % (0.0-0.4); Lymphocytes Absolute Auto 1.9 X10*3/uL (1.2-4.9); Mean Corpuscular HGB Conc 32.6 g/dl (31.0-36.0); Mean Corpuscular Hemoglobin 28.9 pg (27.0-33.0); Mean Corpuscular Volume 88.7 fL (80.0-98.0); NRBC Abs Auto 0.000 X10*3/uL (0.0-0.012); NRBC Pct Auto 0.0 /100WBC (0.0-0.2); Platelet Count 125 X10*3/uL (160-400); Red Blood Count 6.46 X10*6/uL (4.60-5.80); White Blood Count 6.4 X10*3/uL (4.8-10.8)
[2024-10-28 10:17] LABS: Hematocrit 57.3 % (42.0-52.0)
[2024-10-28 11:01] LABS: Anion Gap 9 (12-20); Blood Urea Nitrogen 11 mg/dL (9-16); Calcium 9.0 mg/dL (8.4-10.2); Carbon Dioxide 31 mmol/L (22-29); Chloride 107 mmol/L (96-108); Estimated Glomerular Filt Rate > 60; Potassium 3.8 mmol/L (3.3-5.1); Sodium 143 mmol/L (135-145)
[2024-10-28 11:02] LABS: Appearance Urine Clear; Glucose Urine UA Negative (Negative); PH 5.5 (5.0-9.0); Specific Gravity - Urine 1.015 (1.005-1.025); UMIC TRIGGER UACC YES
[2024-10-28 11:02] LABS: Alanine Aminotransferase 25 U/L (0-40); Albumin Level 4.3 g/dL (3.5-5.0); Alkaline Phosphatase 97 U/L (39-117); Aspartate Amino Transferase 34 U/L (5-37); Cholesterol 106 mg/dL (<200); HDL Cholesterol 39 mg/dL (>40); Total Protein 7.3 g/dL (6.5-8.0); Triglycerides 88 mg/dL (<150)
== END 2024-10-28 09:31 | disposition home or self-care (01) ==
LOC: HO.LAB 09:30
PROVIDERS: PCP Nurse Practitioner Family; Visit Provider Nurse Practitioner Family
DX: Z12.5 Encounter for screening for malignant neoplasm of prostate (principal); E11.9 Type 2 diabetes mellitus without complications
CPT/HCPCS: 36415; 80053; 80061; 81001; 81003; 84153; 84443; 85025

== ENCOUNTER 2024-11-10 10:14 | Outpatient (AMB) | payer OTHER, SELFPAY ==
[2024-11-10 10:24] VITALS: BP 148/78; PULSE 78; RESP 16; TEMP 36.7; O2SAT 98; BMI 40.5
--- NOTE | 2024-11-10 10:24 | A.OFFPC_ITS ---
Vital Signs 11/10/24 10:24 Height 5 ft 10 in Weight 282 lb BMI 40.5 BP 148/78 H Blood Pressure Location Lt brachial Respiration 16 Pulse 78 Temp 98.0 F Temp Source Oral Pulse Oximetry (%) 98 Oxygen Delivery Method Room Air Intake Visit Reasons: 6m follow up*Confirmed 11/07 DCR Director Of Surgery Required: No Accompanied by: Self / Same As Patient Allergies metformin Allergy (Severe, Verified 11/10/24 10:25) Itching Tobacco use date assessed: 11/10/24 Dental Screening Dental Screen Date: 11/10/24 Did you have a dental visit in the last 12 months?: No Did you have a dental problem in the last 6 months where you did not have access to dental care?: No Was dental information given to patient?: Patient declined HPI 6m follow up*Confirmed 11/07 DCR HPI Details Chief Complaint The patient presents for a follow-up regarding diabetes management. History of Present Illness The patient is a 64-year-old male presenting with a follow-up for diabetes management. His hemoglobin A1c has increased to 7.2 from previous values in the 6s, which may be attributed to dietary indiscretions and recent stress. No changes to his insulin or other medications are planned at this time. The patient also reports significant bilateral swelling in his extremities, with the right side being more affected than the left, characterized by pitting edema. A venous insufficiency ultrasound is planned to further evaluate this condition. The patient has a history of tobacco use but is not interested in low-dose CT scans or colonoscopies at this time. HTN: will have him take his BP at home, send me values via portal Social History - Tobacco Use: Patient has a history of smoking. Health Maintenance - Venous insufficiency ultrasound testin g planned for peripheral edema evaluation. Review of Systems - Endocrine: Reports increased A1c level s. - Cardiovascular: Reports significant bi lateral extremity swelling, right greater than left. denies any current neuropathy, cp, increased SOB. Physical Exam General: Cooperative, healthy appearing, comfortable, no acute distress and well developed Orientation: Patient oriented x3 Limitations: No limitations Head: Normal to inspection Ears: Hearing grossly normal bilaterally Nose: Normal external nose present Face and sinus: Normal facial exam Eyes: Appearance normal, both eyes and all related structures Neck: Normal visual inspection and Yes full ROM Respiratory: Normal respiratory effort and able to speak in complete sentences. Clear/dim to auscultation bilaterally Cardiovascular: Regular rate and rhythm. Normal S1 and S2 GI: Normal to inspection. Soft to palpation and nontender Skin: No rashes or lesions noted Neuro: Patient oriented x3 Extremities: Significant swelling to bilateral extremities, right greater than left, with pitting edema. Normal to inspection Results - Labs: Hemoglobin A1c is 7.2. Plan The patient's diabetes management will continue without changes to his current insulin regimen, despite the increase in A1c to 7.2, as this may be related to recent dietary indiscretions and stress. For the significant bilateral extremity swelling, a venous insufficiency ultrasound is planned to assess for underlying causes. The patient is advised to consider smoking cessation, although he is currently not interested in low-dose CT scans or colonoscopies. Discussion Notes I discussed with the patient that his A1c has increased to 7.2, likely due to dietary factors and stress, and that no changes to his insulin regimen are necessary at this time. We also talked about the significant swelling in his extremities and the plan to conduct a venous insufficiency ultrasound to investigate further. I advised him on the benefits of smoking cessation, although he declined further screening tests such as low-dose CT scans and colonoscopies. Patient Instructions - Continue current diabetes medications and monitor blood sugar levels regularly. - Attend the scheduled venous insufficie ncy ultrasound to evaluate leg swelling. - Consider quitting smoking to improve [facility]. -cont to watch BPs, send me values via p ortal ON LICENSE OF [facility] Medical History HTN (hypertension) Cataract Lumbar spondylitis Smoker COPD (chronic obstructive pulmonary disease) Erythrocytosis Deep vein thrombosis Blood clotting disorder Diabetes Surgical History History of surgery on arm Family History Mother No problems noted. Father No problems noted. Social History Housing: Apartment Alcohol intake: former Patient Tobacco Use Status: Current everyday Tobacco user Tobacco use type: Cigarette Cigarette Packs Per Day: 1.5 e-Cigarette/Vaping Use: Never Used Second Hand Smoke Exposure: No service: No Current occupational status: retired Cognitive needs: Yes (cane) Hearing needs: No Vision needs: No Questionnaire PHQ-9 Over the last 2 weeks, how often have you been bothered by any of the following problems? 1. Little interest or pleasure in doing things: not at all 2. Feeling down, depressed, or hopeless: not at all 3. Trouble falling or staying asleep, or sleeping too much: not at all 4. Feeling tired or having little energy: not at all 5. Poor appetite or overeating: not at all 6. Feeling bad about yourself - or that you are a failure or have let yourself or your family down: not at all 7. Trouble concentrating on things, such as reading the newspaper or watching television: not at all 8. Moving or speaking so slowly that other people could have noticed. Or the opposite - being so fidgety or restless that you have been moving around a lot more than usual: not at all 9. Thoughts that you would be better off or of hurting yourself in some way: not at all Total score: 0 Depression Screening Interpretation: Negative Depression Screening Done: Yes 73355 - PHQ-9 Billing: Yes Source: Developed by Drs. Jorge Roper, Ct Hopkins, Jeremy Velasquez and colleagues, with an educational magui from [employer]. Thrive Questionnaire Date Thrive assessed: 05/13/24 I am a: Patient What is your living situation today?: I have a steady place to live Within the past 12 months, did the food you bought not last and you didn't have the money to get more?: Often true Within the past 12 months, did you worry whether your food would run out before you got money to buy more?: Often true Do you have trouble paying for medicines?: Yes Do you have trouble getting transportation to medical appointments?: No Do you have trouble paying your heating and electricity bill?: No Do you have trouble taking care of your child, family member or friend?: No Do you have trouble with day-to-day activities such as bathing, preparing meals, shopping, managing finances, etc.?: No Are you currently unemployed and looking for a job?: No Are you interested in more education?: No Please select the resources that you would like help with: None Currently or been in a relationship where the following occur: No concerns reported THRIVE Score: 2 MATTEO-7 AMB Questionnaire MATTEO-7 Date MATTEO - 7 assessed: 11/10/24 Feeling nervous, anxious, or on edge: 0 = Not at all Not being able to stop or control worryin = Not at all Worrying too much about different things: 0 = Not at all Trouble relaxin = Several days Being so restless that it is hard to sit still: 1 = Several days Becoming easily annoyed or irritable: 1 = Several days Feeling afraid as if something awful might happen: 0 = Not at all Total MATTEO-7 score (0-4 normal; 5-9 mild; 10-14 moderate; 15-21 severe): 3 Source: Developed by Drs. Jorge Roper, Ct Hopkins, Jeremy Velasquez and colleagues, with an educational magui from [employer]. MATTEO-7 Assessment Billing MATTEO-7 Assessment Tool: MATTEO-7 Assessment 11466 Physical exam (Primary Care) Vital Signs: Last Vital Signs Temp 98.0 F 11/10/24 10:24 Pulse 78 11/10/24 10:24 Resp 16 11/10/24 10:24 BP 148/78 H 11/10/24 10:24 Pulse Ox 98 11/10/24 10:24 Oxygen Delivery Method Room Air 11/10/24 10:24 BMI result Body Mass Index 40.5 Tobacco/Smoking Status: Tobacco use Status Tobacco use date assessed 11/10/24 11/10/24 10:34 Patient Tobacco Use Status Current everyday Tobacco 11/10/24 10:34 Tobacco use type Cigarette 11/10/24 10:34 e-Cigarette/Vaping Use Never Used 11/10/24 10:34 PHQ-9: PHQ-9 Score PHQ-9: Total score 0 11/10/24 10:34 Depression Screening Interpretation: Negative Thrive Assessment: Date of Thrive Assessment Date Thrive assessed 05/13/24 11/10/24 10:34 Currently or been in a relationship where the following occur: No concerns reported Coding Level of Care Code Est Pt Level 4 (68525) Diagnoses Type 2 diabetes mellitus without complication, without long-term current use of insulin E11.9 Diabetes mellitus complication status: without complication Diabetes mellitus manager intermediate insulin use: without manager intermediate use Diabetes mellitus type: type 2 Smoker F17.200 Swelling of both lower extremities M79.89 HTN (hypertension) I10 Additional Codes MATTEO-7 Assessment Billing - MATTEO-7 Assessment Tool: MATTEO-7 Assessment 66262 ([id number]) PHQ-9 - 03460 - PHQ-9 Billing: Yes ([id number]) Assessment & Plan Assessment & Plan (1) Diabetes: Code(s): E11.9 - Type 2 diabetes mellitus without complications Category: Medical Qualifiers: Diabetes mellitus complication status: without complication Diabetes mellitus chcf insulin use: without chcf use Diabetes mellitus type: type 2 Qualified Code(s): E11.9 - Type 2 diabetes mellitus without complications (2) Smoker: Code(s): F17.200 - Nicotine dependence, unspecified, uncomplicated Category: Social Hx (3) Swelling of both lower extremities: Code(s): M79.89 - Other specified soft tissue disorders Category: Medical (4) HTN (hypertension): Code(s): I10 - Essential (primary) hypertension Category: Medical Plan . Orders: Orders US venous insuf bilat Today F17.200 - Nicotine dependence, unspecified, uncomplicated, M79.89 - Other specified soft tissue disorders Complete Blood Count Auto Diff Today E11.9 - Type 2 diabetes mellitus without complications Comprehensive [place]. Panel Fast Today E11.9 - Type 2 diabetes mellitus without complications TSH reflex Free T4 Today E11.9 - Type 2 diabetes mellitus without complications UA CC w/rflx Micro + Cult Today E11.9 - Type 2 diabetes mellitus without complications Lipid Panel Today E11.9 - Type 2 diabetes mellitus without complications
== END 2024-11-10 11:33 | disposition home or self-care (01) ==
LOC: HO.HMCC 10:15
PROVIDERS: PCP Nurse Practitioner Family; Visit Provider Nurse Practitioner Family
DX: E11.9 Type 2 diabetes mellitus without complications (principal); F17.200 Nicotine dependence, unspecified, uncomplicated; M79.89 Other specified soft tissue disorders; I10 Essential (primary) hypertension; Z13.9 Encounter for screening, unspecified

== ENCOUNTER → 2024-11-10 10:14 | Outpatient (BNVA) | payer OTHER, SELFPAY | PROVIDERS: PCP Nurse Practitioner Family; Visit Provider Nurse Practitioner Family | DX: E11.9 Type 2 diabetes mellitus without complications (principal); I10 Essential (primary) hypertension; F17.210 Nicotine dependence, cigarettes, uncomplicated; M79.89 Other specified soft tissue disorders | CPT/HCPCS: 83036; 96127; 99212 ==

== ENCOUNTER 2024-12-02 11:10 | Outpatient (AMB) | payer OTHER, SELFPAY ==
--- NOTE | 2024-12-02 11:20 | A.OFFVIS_ITS ---
Vital Signs 12/02/24 11:25 Height 5 ft 10 in Weight 280 lb BMI 40.2 Intake Visit Reasons: OV-Bilateral Knee Euflexxa 3 month follow up Intake Note: Kerwin is a 64 year old male who presents with complaints of bilateral knee pains as well as low back pain which radiates into his right leg. He has not had surgery on his back past. He did have Euflexxa viscosupplementation injections given into both of his knees earlier this year. He states that the injections did not help with his pain. He has taken Tylenol which gives him minimal relief. He is not able to take anti-inflammatory medicines because he is on Eliquis. He has used topical arthritis creams which gave him mild relief. Allergies metformin Allergy (Severe, Verified 12/02/24 11:25) Itching Medication List - Last Reconciled 12/02/24 by Julio Venegas MD albuterol sulfate 90 mcg/actuation 1 inh inhalation QID PRN 90 days albuterol sulfate 1.25 mg (1.5 mL) inhalation Q6H 90 days amlodipine 2.5 mg PO DAILY apixaban (Eliquis) 5 mg PO BID 90 days blood sugar diagnostic (FreeStyle Lite Strips) tid blood sugar diagnostic test blood sugar three times a day flash glucose scanning reader (FreeStyle Maria Del Rosario 2 [place]) As directed flash glucose sensor (FreeStyle Maria Del Rosario 2 Sensor kit) Test blood sugar 4 times per day gabapentin 800 mg PO Q8H 90 days insulin glargine (Lantus Solostar U-100 Insulin) 75 units (0.75 mL) subcut DAILY lancets (FreeStyle Lancets) As directed losartan-hydrochlorothiazide 50-12.5 mg 1 tab PO DAILY 90 days pen needle, diabetic (BD Ultra-Fine Lesli Pen Needle) daily use pioglitazone 15 mg PO DAILY simvastatin 20 mg PO BEDTIME [facility] Medical History HTN (hypertension) Cataract Lumbar spondylitis Smoker COPD (chronic obstructive pulmonary disease) Erythrocytosis Deep vein thrombosis Blood clotting disorder Diabetes Surgical History History of surgery on arm Family History Mother No problems noted. Father No problems noted. Social History Housing: Apartment Alcohol intake: former Patient Tobacco Use Status: Current everyday Tobacco user Tobacco use type: Cigarette Cigarette Packs Per Day: 1.5 e-Cigarette/Vaping Use: Never Used Second Hand Smoke Exposure: No service: No Current occupational status: retired Cognitive needs: Yes (cane) Hearing needs: No Vision needs: No Physical Exam Vital Signs: BMI result Body Mass Index 40.2 Extrem Other: Bilateral knee examination shows minimal effusions, palpable crepitus with range of motion, pain with range of motion Results Reviewed Results Reviewed: X-rays of the patient's bilateral knees taken previously show joint space narrowing, subchondral sclerosis, no acute bony abnormalities Assessment & Plan Assessment & Plan (1) Osteoarthritis of left knee: Code(s): M17.12 - Unilateral primary osteoarthritis, left knee Category: Medical (2) Osteoarthritis of right knee: Code(s): M17.11 - Unilateral primary osteoarthritis, right knee Category: Medical Plan Mr. Louis presents with bilateral knee pains due to degenerative joint disease as well as chronic low back pain. I do not feel that the patient is a good candidate for knee replacement surgery at this time because of his weight, vascular disease and medical problems. I will arrange for the patient to have an evaluation in our pain management department for possible nerve stimulation procedure or low back injections. The patient will follow-up as instructed. I spent 20 minutes in reviewing the patient's records and imaging studies, seeing the patient and documenting in the medical record. Orders: Referrals Pain Management Referral G89.29 - Other chronic pain, M17.11 - Unilateral primary osteoarthritis, right knee, M17.12 - Unilateral primary osteoarthritis, left knee, M54.50 - Low back pain, unspecified Coding Level of Care Code Est Pt Level 3 (26794) Complex EM visit Add On G2211 Diagnoses Osteoarthritis of left knee M17.12 Osteoarthritis of right knee M17.11
[2024-12-02 11:25] VITALS: BMI 40.2
== END 2024-12-02 11:51 | disposition home or self-care (01) ==
LOC: HO.HOS 11:11
PROVIDERS: PCP Nurse Practitioner Family; Visit Provider Orthopaedic Surgery
DX: M17.0 Bilateral primary osteoarthritis of knee (principal)
CPT/HCPCS: 99213

== ENCOUNTER → 2024-12-02 11:10 | Outpatient (BNVA) | payer OTHER, SELFPAY | PROVIDERS: PCP Nurse Practitioner Family; Visit Provider Orthopaedic Surgery | DX: M17.12 Unilateral primary osteoarthritis, left knee (principal); M17.11 Unilateral primary osteoarthritis, right knee | CPT/HCPCS: 99212 ==

== ENCOUNTER 2024-12-22 13:08 | Outpatient (AMB) | payer OTHER, SELFPAY ==
--- NOTE | 2024-12-22 13:10 | A.OFFVIS_ITS ---
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 Accompanied by: Sister Allergies metformin Allergy (Severe, Verified 12/22/24 13:13) Itching Medication List - Last Reconciled 12/22/24 by Ny Cabral LPN albuterol sulfate 1.25 mg (1.5 mL) inhalation Q6H 90 days amlodipine 2.5 mg PO DAILY apixaban (Eliquis) 5 mg PO BID 90 days blood sugar diagnostic (FreeStyle Lite Strips) tid blood sugar diagnostic test blood sugar three times a day flash glucose scanning reader (FreeStyle [place]ario 2 [place]) As directed flash glucose sensor (FreeStyle Maria Del Rosario 2 Sensor kit) Test blood sugar 4 times per day gabapentin 800 mg PO Q8H 90 days insulin glargine (Lantus Solostar U-100 Insulin) 75 units (0.75 mL) subcut DAILY lancets (FreeStyle Lancets) As directed losartan-hydrochlorothiazide 50-12.5 mg 1 tab PO DAILY 90 days pen needle, diabetic (BD Ultra-Fine Lesli Pen Needle) daily use pioglitazone 15 mg PO DAILY simvastatin 20 mg PO BEDTIME HPI HPI Low back pain, unspecified: Details: History of Present Illness The patient is a 64-year-old male presenting with chronic pain management, specifically for knee and lower back pain. The patient has been experiencing chronic lower back pain for the past 25 years, which has progressively worsened over time. The pain radiates from the right leg to the left leg and is described as severe and debilitating. Previous inter ventions included gel injections in both knees, which were ineffective and possibly exacerbated the pain. The patient also reports knee pain, which was evaluated by an mental health program specialist who diagnosed osteoarthritis based on x-ray findings showing significant arthritic changes. The patient received gel injections in both knees, which did not provide relief and were considered a poor decision by the patient. The patient experiences daily swelling in the legs, particularly the right leg, which has been persistent for many years. A sonogram is planned to evaluate the swelling further, as previous vascular evaluations were unremarkable. Previous exams were only for DVT assessment not for venous reflux. The patient has a history of diabetes mellitus, which has been present for many years and may contribute to the peripheral edema. Pain Description - Onset: Chronic pain for 25 years - Quality: Severe and debilitating - Location: Lower back, radiating from right leg to left leg - Exacerbating factors: Walking, nighttime - Relieving factors: None effective Physical Exam - Musculoskeletal: Tenderness in the distal thigh and medial aspect of the knee - Lower extremity swelling and erythema, right much more notable compared to the left. Results - Imaging: X-ray of knees showed significant arthritic changes Pain Management - Affect: Pain is severe and impacts daily activities - Analgesia: Gel injections were ineffective - Activities of Daily Living: Pain interferes with walking and nighttime rest PFSH Medical History HTN (hypertension) Cataract Lumbar spondylitis Smoker COPD (chronic obstructive pulmonary disease) Erythrocytosis Deep vein thrombosis Blood clotting disorder Diabetes Surgical History History of surgery on arm Family History Mother No problems noted. Father No problems noted. Social History Housing: Apartment Alcohol intake: former Patient Tobacco Use Status: Current everyday Tobacco user Tobacco use type: Cigarette Cigarette Packs Per Day: 1.5 e-Cigarette/Vaping Use: Never Used Second Hand Smoke Exposure: No service: No Current occupational status: retired Cognitive needs: Yes (cane) Hearing needs: No Vision needs: No Physical Exam Vital Signs: Last Vital Signs Pulse 88 12/22/24 13:11 Resp 17 12/22/24 13:11 BP 164/78 H 12/22/24 13:11 Pulse Ox 96 12/22/24 13:11 Oxygen Delivery Method Room Air 12/22/24 13:11 BMI result Body Mass Index 40.0 Assessment & Plan Assessment & Plan (1) Bilateral knee pain: Code(s): M25.561 - Pain in right knee; M25.562 - Pain in left knee Category: Medical (2) Swelling of both lower extremities: Code(s): M79.89 - Other specified soft tissue disorders Category: Medical Plan Plan Patient was informed and verbally consented to the use of an ambient scribe for clinic note documentation during this visit. 1. Osteoarthritis Of The Knee - Consideration of temporary nerve stimulator once vascular causes ruled out. - Await results of upcoming sonogram to assess swelling and vascular issues. 2. Peripheral Edema - Plan to perform a sonogram to evaluate the cause of swelling. - Previous vascular evaluations were unremarkable. Discussion Notes During the consultation, we discussed the potential use of a nerve block or nerve stimulator for managing the patient's chronic pain, particularly in the knees and lower back. The temporary nerve stimulator was explained as having a 70% success rate, with minimal risks such as a small chance of superficial skin infection. We also discussed the need for a sonogram to evaluate the swelling in the legs, as previous vascular evaluations were unremarkable. Patient Instructions - Await the results of the sonogram to determine the cause of leg swelling. - Consider the potential benefits and risks of a nerve block or nerve stimulator for pain management. - Monitor blood sugar levels to manage diabetes effectively. Coding Level of Care Code New Pt Level 4 (37008) Diagnoses Bilateral knee pain M25.561; M25.562 Swelling of both lower extremities M79.89
[2024-12-22 13:11] VITALS: BP 164/78; PULSE 88; RESP 17; O2SAT 96; BMI 40.0
== END 2024-12-22 13:58 | disposition home or self-care (01) ==
PROVIDERS: PCP Nurse Practitioner Family; Visit Provider Internal Medicine
DX: M25.561 Pain in right knee (principal); M25.562 Pain in left knee; M79.89 Other specified soft tissue disorders
CPT/HCPCS: 99204

== ENCOUNTER → 2024-12-22 13:08 | Outpatient (BNVA) | payer OTHER, SELFPAY | PROVIDERS: PCP Nurse Practitioner Family; Visit Provider Internal Medicine | DX: M25.561 Pain in right knee (principal); M25.562 Pain in left knee; M79.89 Other specified soft tissue disorders | CPT/HCPCS: 99202 ==

== ENCOUNTER 2024-12-30 13:09 | Outpatient (REF) | payer OTHER, SELFPAY ==
--- NOTE | ~2024-12-30 | US_ITS ---
EXAMINATION: US LOWER EXTREMITY VENOUS (REFLUX EXAM), BILATERAL CLINICAL INFORMATION: Venous incompetence COMPARISON: None. TECHNIQUE: Color flow triplex imaging and compression Doppler was performed to evaluate both the deep and the superficial systems bilaterally. To evaluate the superficial system, the examination was performed in the upright position. Color-flow Doppler ultrasound and compression ultrasound were utilized. In addition, maneuvers were utilized to demonstrate reflux. FINDINGS: 1. DEEP VENOUS ULTRASOUND OF THE RIGHT LOWER EXTREMITY: Common Femoral Vein: Compressible, normal respiratory variation and augmented flow. Femoral Vein: Compressible, normal color flow and augmentation. Popliteal Vein: Compressible, normal augmentation. Deep Reflux: There is no evidence of reflux in the deep system in either the common femoral vein, superficial femoral or the popliteal vein. 2. SUPERFICIAL ULTRASOUND WITH DOPPLER OF RIGHT LOWER EXTREMITY: GREAT SAPHENOUS VEIN: Saphenofemoral Junction: 0.7 cm; Reflux: 0 ms Proximal Thigh: 0.4 cm; Reflux: 0 ms Mid Thigh: 0.3 cm; Reflux: 0 ms Distal Thigh: 0.2 cm; Reflux: 0 ms At Knee: 0.2 cm; Reflux: 0 ms Below Knee/Proximal Calf: 0.2 cm; Reflux: 0 ms Mid Calf: 0.3 cm; Reflux: 0 ms Ankle/Distal Calf: 0.3 cm; Reflux: 0 ms SMALL SAPHENOUS VEIN: Drainage: Popliteal vein Saphenopopliteal Junction: 0.3 cm; Reflux: 0 ms Mid calf: 0.2 cm; Reflux: 0 ms Distal: 0.3 cm; Reflux: 0 ms DUPLICATED SMALL SAPHENOUS VEIN: Below Knee/Proximal Calf: 0.3 cm; Reflux: 0 ms Mid Calf: 0.3 cm; Reflux: 0 ms Ankle/Distal Calf: 0.3 cm; Reflux: 0 ms VEIN OF GIACOMINI: Size: NA cm Reflux: NA ms PERFORATORS: Location: Greater saphenous vein, proximal thigh Size: 0.2 cm Reflux: 0 ms Location: Greater saphenous vein, proximal calf Size: 0.2 cm Reflux: 0 ms Location: Greater saphenous vein, mid calf Size: 0.2 cm Reflux: 0 ms VARICOSITIES > 3mm: Location: None Imaged 3. DEEP VENOUS ULTRASOUND OF THE LEFT LOWER EXTREMITY: Common Femoral Vein: Compressible, normal respiratory variation and augmented flow. Femoral Vein: Compressible, normal color flow and augmentation. Popliteal Vein: Compressible, normal augmentation. Deep Reflux: There is no evidence of reflux in the deep system in either the common femoral vein, superficial femoral or the popliteal vein. 4. SUPERFICIAL ULTRASOUND WITH DOPPLER OF LEFT LOWER EXTREMITY: GREAT SAPHENOUS VEIN: Saphenofemoral Junction: 0.6 cm; Reflux: 0 ms Proximal Thigh: 0.6 cm; Reflux: 0 ms Mid Thigh: 0.3 cm; Reflux: 0 ms Distal Thigh: 0.3 cm; Reflux: 0 ms At Knee: 0.4 cm; Reflux: 0 ms Below Knee/Proximl calf: 0.3 cm; Reflux: 0 ms Mid Calf: 0.3 cm; Reflux: 3100 ms Distal Calf/Ankle: 0.3 cm; Reflux: 0 ms SMALL SAPHENOUS VEIN: Saphenopopliteal Junction: 0.2 cm; Reflux: 0 ms Mid calf: 0.4 cm; Reflux: 0 ms Distal calf: 0.2 cm; Reflux: 0 ms VEIN OF GIACOMINI: Size: NA Reflux: NA PERFORATORS: Location: Greater saphenous vein, proximal calf Size: 0.2 cm Reflux: 0 ms Location: Greater saphenous vein, mid calf Size: 0.2 cm Reflux: 0 ms VARICOSITIES > 3mm: Location: None Imaged US/US venous insuf bilat IMPRESSION: Right: No venous reflux is demonstrated. Left: Venous incompetence involving greater saphenous vein at the mid calf. Electronically signed by: Sudarshan Sauer MD 12/30/2024 02:11 PM EDT
== END 2024-12-30 13:10 | disposition home or self-care (01) ==
LOC: HO.US 13:09
PROVIDERS: PCP Nurse Practitioner Family; Visit Provider Nurse Practitioner Family
DX: M79.89 Other specified soft tissue disorders (principal); F17.200 Nicotine dependence, unspecified, uncomplicated
CPT/HCPCS: 93970

== ENCOUNTER → 2024-12-30 13:10 | Outpatient (BNV) | payer OTHER, SELFPAY | PROVIDERS: PCP Nurse Practitioner Family; Visit Provider Radiology Diagnostic Radiology | DX: I83.812 Varicose veins of left lower extremity with pain (principal) | CPT/HCPCS: 93970 ==

== ENCOUNTER 2025-03-24 09:47 | Outpatient (REF) | payer OTHER, SELFPAY ==
[2025-03-24 10:11] LABS: MANUAL DIFF FLAG NO
[2025-03-24 10:54] LABS: Hemoglobin 19.2 g/dl (14.0-18.0); Imm Gran Abs Auto 0.03 X10*3/uL (0.00-0.03); Imm Gran Pct Auto 0.5 % (0.0-0.4); Lymphocytes Absolute Auto 1.3 X10*3/uL (1.2-4.9); Mean Corpuscular HGB Conc 33.2 g/dl (31.0-36.0); Mean Corpuscular Hemoglobin 29.4 pg (27.0-33.0); Mean Corpuscular Volume 88.4 fL (80.0-98.0); NRBC Abs Auto 0.000 X10*3/uL (0.0-0.012); NRBC Pct Auto 0.0 /100WBC (0.0-0.2); Platelet Count 150 X10*3/uL (160-400); Red Blood Count 6.54 X10*6/uL (4.60-5.80); White Blood Count 6.3 X10*3/uL (4.8-10.8)
[2025-03-24 10:55] LABS: Hematocrit 57.8 % (42.0-52.0)
[2025-03-24 11:15] LABS: Appearance Urine Clear; Glucose Urine UA Negative (Negative); PH 5.5 (5.0-9.0); Specific Gravity - Urine 1.010 (1.005-1.025)
[2025-03-24 11:56] LABS: Anion Gap 10 (12-20); Blood Urea Nitrogen 9 mg/dL (9-16); Carbon Dioxide 31 mmol/L (22-29); Chloride 106 mmol/L (96-108); Estimated Glomerular Filt Rate > 60; Potassium 4.2 mmol/L (3.3-5.1); Sodium 143 mmol/L (135-145)
[2025-03-24 11:57] LABS: Alanine Aminotransferase 28 U/L (0-40); Albumin Level 4.3 g/dL (3.5-5.0); Alkaline Phosphatase 101 U/L (39-117); Aspartate Amino Transferase 28 U/L (5-37); Calcium 9.1 mg/dL (8.4-10.2); Cholesterol 103 mg/dL (<200); HDL Cholesterol 40 mg/dL (>40); Total Protein 7.1 g/dL (6.5-8.0); Triglycerides 90 mg/dL (<150)
== END 2025-03-24 09:48 | disposition home or self-care (01) ==
LOC: HO.LAB 09:47
PROVIDERS: Visit Provider Nurse Practitioner Family
DX: R31.29 Other microscopic hematuria (principal); E11.9 Type 2 diabetes mellitus without complications
CPT/HCPCS: 36415; 80053; 80061; 81003; 84443; 85025; 87086; 88112

== ENCOUNTER 2025-03-25 11:19 | Outpatient (REF) | payer OTHER, SELFPAY ==
[2025-03-25 14:29] LABS: Reticulocytes Absolute 0.090 X10*6/uL (0.026-0.095)
== END 2025-03-25 11:20 | disposition home or self-care (01) ==
LOC: HO.HMGCLDS 11:19
PROVIDERS: PCP Nurse Practitioner Family; Visit Provider Nurse Practitioner Family
DX: R17 Unspecified jaundice (principal)
CPT/HCPCS: 36415; 82247; 82248; 83010; 83615; 85045; 86381